=== PATIENT | male | born 1950 | race Caucasian/White ===

== ENCOUNTER 2017-05-09 14:39 | Emergency (ER) | payer OTHER, BC ==
[~2017-05-09] VITALS: Ht 175.3 cm; Wt 80.4 kg
[2017-05-09 14:45] VITALS: TEMP 37; Ht 175.3 cm; Wt 80.4 kg
[2017-05-09] MEDS ORDERED: LIDO/EPINEPHRINE/SOD BICARB 20 ML VIAL INFIL ONE (15:15)
--- NOTE | 2017-05-09 15:40 | EMERGENCY ROOM VISIT NOTE ---
ED Visit Note First contact with patient: 14:50 CHIEF COMPLAINT: Scalp laceration at work 1 hour ago HISTORY OF PRESENT ILLNESS: Patient is a generally healthy 66-year-old white male brought to the emergency department by a coworker for evaluation of a left- sided scalp laceration that he sustained at work about an hour ago. 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 He was no loss of consciousness, he complains of a mild throbbing discomfort at the site of the laceration that he rates a 4/10. He denies any generalized headache. No lightheadedness, dizziness, nausea or vomiting. He denies any neck pain. REVIEW OF SYSTEMS: Review of systems as per HPI. All other systems reviewed were negative. At least 6 systems reviewed. PMH: Electronic medical records are reviewed and summarized as above/below. See Problem List. His tetanus is up-to-date. SOCIAL HISTORY: Patient lives at home with his . Nonsmoker. PHYSICAL EXAM: Vital Signs: Reviewed Nurse's notes. CONSTITUTIONAL: Patient is a pleasant, well-appearing 56-year-old white male who is awake and alert and in no acute distress. HEENT: Normocephalic, 5 cm V-shaped flap laceration on the top of the head on the left. Pupils equal, round, reactive to light and accommodation. EOMs intact without nystagmus. Sclera are anicteric. Tympanic membranes intact, with normal landmarks. External canals are clear. No hemotympanum or Cuellar sign. Oral and nasopharynx are clear. Mucous membranes are moist. NECK: Supple, nontender, no lymphadenopathy. NEUROLOGICAL: Alert and cooperative. Sensory and motor functions grossly intact. Normal gait. EMERGENCY DEPARTMENT COURSE: Patient was seen and assessed as above. Old records were reviewed. The wound was cleaned with saline and Betadine and irrigated with saline. Sterile technique was used and the wound was anesthetized with 1% buffered lidocaine with epinephrine. The flap was reflected, wound base was inspected thoroughly. There was no foreign body. No active bleeding. Wound did not extend into the galea. The wound edges were then approximated with 6 skin caio. Bacitracin ointment was applied as a dressing. Patient tolerated the procedure well. Mechanism of injury is not consistent with skull fracture, acute intracranial bleed or concussion. It was not felt that any advanced neuro imaging was indicated. Patient was comfortable with this. Wound care measures were outlined. Discharged home in good condition. Medication reconciliation: I attest that I have personally reviewed the patient' s current medication list. Blood pressure screening: Patient was found to have a slightly elevated blood pressure due to circumstances. I do not believe that the patient requires hypertension monitoring. Current/Historical Medications Scheduled Atorvastatin (Lipitor), 10 MG PO DAILY Allergies Coded Allergies: No Known Allergies (Unverified , 05/09/17) Vital Signs Date Time Temp Pulse Resp B/P (MAP) Pulse Ox O2 Delivery O2 Flow Rate FiO2 05/09/17 16:00 79 18 145/91 96 Room Air 05/09/17 14:45 37.0 77 18 161/86 94 Room Air Departure Information Impression Primary Impression: Scalp laceration Additional Impression: Work related injury Referrals No Doctor, Assigned (PCP) Patient Instructions My [facility] Additional Instructions Keep wound clean and dry. Do not allow any crusting or dried blood to accumulate on caio. May cleanse the area gently with mild soap/C ampule and rinsed with water. May also use a 1:1 solution of hydrogen peroxide/water on a Q-tip to clean the wound should any crusting or scabbing develop. Use an antibiotic ointment for 3-4 days, then let wound dry. Staple removal in 12-14 days. Return sooner for any signs of infection (increasing redness, swelling, drainage), severe headache, vomiting, passing out, or any other concerns.. Ice and elevate for swelling and pain. Tylenol 1000 mg every 6 hrs for pain. Problem Qualifiers
[2017-05-09] MEDS ORDERED: ATOR10TA82 PO (15:48)
[2017-05-09 16:00] VITALS: BP 145/91; PULSE 79; O2SAT 96
== END 2017-05-09 16:00 | disposition home or self-care (01) ==
LOC: C.EDB 14:39 → C.EDD 16:00
DX: S01.01XA Laceration without foreign body of scalp, initial encounter (principal); W22.8XXA Striking against or struck by other objects, initial encounter; Y92.89 Other specified places as the place of occurrence of the external cause; Y99.0 Civilian activity done for income or pay; Z79.899 Other long term (current) drug therapy

== ENCOUNTER → 2017-05-19 | Outpatient (CLI) | payer BC, OTHER ==
[~2017-05-19] VITALS: Ht 176.5 cm; Wt 79.7 kg
[~2017-05-19] MED LIST: ATOR10TA82 PO
[2017-05-19 12:20] VITALS: BP 136/85; PULSE 91; Ht 176.5 cm; Wt 79.7 kg
== END | disposition home or self-care (01) ==
LOC: C.NEUR 11:54
PROVIDERS: ATTEND Internal Medicine Pulmonary Disease
DX: G47.19 Other hypersomnia (principal); R53.83 Other fatigue; R06.81 Apnea, not elsewhere classified; G47.8 Other sleep disorders; R06.83 Snoring

== ENCOUNTER → 2017-06-02 | Outpatient (CLI) | payer BC, OTHER ==
--- NOTE | 2017-06-05 13:47 | POLYSOMNOGRAPH REPORT ---
CLINICAL DATA: 67-year-old male with a BMI of [address] Conway and myself for fatigue, excessive daytime sleepiness, and snoring. On the evening of 06/02/2017, a home sleep apnea test was performed using a Heyzap type 3 monitor. RECORDING RESULTS: Total recording time was 10 hours. The patient's monitoring time and estimated sleep time was 7.3 hours. RESPIRATORY DATA: There was no evidence of clinically significant sleep apnea seen. The TASHA was 3.1. There was 1 mixed and 4 central apneic episodes. There were 18 hypopneic episodes. The longest respiratory event was 29 seconds. OXIMETRY DATA: No significant hypoxemia was seen. Oxygen ankit was 87%. Mean saturation was 92%. Time below 89% was less than one minute. HEART RATE DATA: Heart rates ranged from 52-69 beats per minute. SNORING DATA: Snoring was recorded throughout the night. IMPRESSION: No evidence of clinically significant sleep apnea/hypopnea or nocturnal hypoxemia to explain this patient's symptoms. RECOMMENDATIONS: The patient should continue to practice good sleep hygiene. GUILLAUME
== END | disposition home or self-care (01) ==
LOC: C.NEUR 12:16
PROVIDERS: ATTEND Internal Medicine Pulmonary Disease
DX: G47.19 Other hypersomnia (principal); R53.83 Other fatigue; R06.83 Snoring; G47.8 Other sleep disorders; R06.81 Apnea, not elsewhere classified

== ENCOUNTER 2017-06-16 16:01 | Inpatient (IN) | payer BC, OTHER ==
[~2017-06-16] VITALS: Ht 175.3 cm; Wt 76.8 kg
[2017-06-16] MEDS ORDERED: NITROGLYCERIN OINT 2% 1GM PACKET EXT ONE (16:15)
--- NOTE | 2017-06-16 16:26 | DIAGNOSTIC IMAGING REPORT ---
CHEST ONE VIEW PORTABLE CLINICAL HISTORY: Chest pain and cough. COMPARISON STUDY: No previous studies for comparison. FINDINGS: Lung volumes are at the lower limits of normal. There is no consolidation to suggest pneumonia is there is no evidence of pulmonary edema. Cardiomediastinal silhouette is normal. Minimal left basilar opacity favors atelectasis. IMPRESSION: No acute cardiopulmonary findings. Electronically signed by: Александр Galan M.D. 06/16/2017 4:24 PM Dictated Date/Time: 06/16/2017 4:24 PM
[2017-06-16 16:46] LABS: BASO % 0.3 %; BASO ABS # 0.04 K/uL (0-0.2); COMPLETE YES; EOS % 3.9 %; HEMATOCRIT 41.2 % (42-52); IG% 0.3 %; LYMPH % 9.7 %; LYMPH ABS # 1.26 K/uL (1.2-3.4); MEAN CELL VOLUME 93.8 fL (80-100); MEAN CORPUSCULAR HEMOGLOBIN 31.7 pg (25-34); MEAN CORPUSCULAR HGB CONC 33.7 g/dl (32-36); MEAN PLATELET VOLUME 9.9 fL (7.4-10.4); MONO % 7.7 %; NEUT % 78.1 %; PLATELET COUNT 206 K/uL (130-400); RED BLOOD COUNT 4.39 M/uL (4.7-6.1); WHITE BLOOD COUNT 12.93 K/uL (4.8-10.8)
[2017-06-16 17:08] LABS: POINT OF CARE TROPONIN I < 0.030 ng/ml (0-0.045)
[2017-06-16 17:10] LABS: ALT/SGPT 33 U/L (12-78); BLOOD UREA NITROGEN 15 mg/dl (7-18); BUN/CREATININE RATIO 16.5 (10-20); CALCIUM 8.4 mg/dl (8.5-10.1); CARBON DIOXIDE 26 mmol/L (21-32); CHLORIDE 104 mmol/L (98-107); CREATININE 0.89 mg/dl (0.60-1.40); GLUCOSE 145 mg/dl (70-99); POTASSIUM 3.6 mmol/L (3.5-5.1); SODIUM 137 mmol/L (136-145)
[2017-06-16 17:15] LABS: ALKALINE PHOSPHATASE 60 U/L (45-117); AST/SGOT 19 U/L (15-37); CKMB/CK RATIO 1.1 (0-3.0)
[2017-06-16] MEDS ORDERED: OPTIRAY 320 IV PRN (17:30)
[2017-06-16] MEDS ORDERED: ACET-1256 PO (17:43)
[2017-06-16] MEDS ORDERED: ASPI81TA28 PO (17:43)
--- NOTE | 2017-06-16 18:10 | DIAGNOSTIC IMAGING REPORT ---
CT ANGIOGRAPHY OF THE CHEST, PULMONARY EMBOLUS PROTOCOL CLINICAL HISTORY: Right-sided chest pain, elevated d-dimer and cough. COMPARISON STUDY: Chest radiograph performed earlier today. TECHNIQUE: Following IV administration of 116 mL of Optiray-320, helical axial images of the chest were obtained utilizing the pulmonary embolus protocol. Maximal intensity projections and sagittal and coronal reformats were viewed on an independent 3D workstation. IV contrast was administered without complication. A dose lowering technique was utilized adhering to the principles of ALARA. CT DOSE: 343.18 mGy.cm FINDINGS: No pulmonary emboli are identified. The size of the heart is normal. There is no pericardial effusion. No enlarged axillary, mediastinal or hilar lymph nodes are present. The central airways are patent. There is no pneumothorax. There are trace bilateral pleural effusions. Bilateral lower lobe ground glass opacities favor atelectasis. There are mild upper lobe predominant subpleural groundglass opacities. Note is made of a 5 mm right upper lobe subpleural ill-defined nodular opacity shown image 178 of 278. No cavitation is present. There is no thoracic aortic dissection. Bony thorax and upper abdomen are unremarkable. IMPRESSION: 1. No pulmonary emboli identified. 2. Trace bilateral pleural effusions. 3. Mild upper lobe and peripheral predominant subpleural groundglass opacities. These are nonspecific and differential considerations include an infectious etiology, respiratory bronchiolitis, eosinophilic pneumonia and inhalational injury. A follow-up chest CT in 3 months to ensure resolution is recommended. 4. Bilateral lower lobe ground glass opacities which favor atelectasis. Electronically signed by: Александр Galan M.D. 06/16/2017 6:09 PM Dictated Date/Time: 06/16/2017 5:52 PM
[2017-06-16] MEDS ORDERED: LEVAQUIN 750MG / 150ML D5W IV STA (18:39)
[2017-06-16] MEDS ORDERED: ONDANSETRON INJ 2 MG/ML 2 ML VIAL IV PRN (20:00)
[2017-06-16] MEDS ORDERED: ACETAMINOPHEN 325 MG TAB PO PRN (20:00)
[2017-06-16] MEDS ORDERED: NITROGLYCERIN 0.4 MG SL PER TAB CHARGE SL PRN (20:00)
[2017-06-16] MEDS ORDERED: ALBUTEROL HFA 8 GM INHALER INH PRN (20:15)
[2017-06-16] MEDS ORDERED: ALBUTEROL 0.083% NEBU SOLN 3 ML VIAL INH PRN (20:15)
[2017-06-16] MEDS ORDERED: LEVAQUIN 750MG / 150ML D5W ONE (20:41)
[2017-06-16 21:09] LABS: INFLUENZA A PCR Neg for Influ A (NEG); INFLUENZA B PCR Neg for Influ B (NEG)
[2017-06-16 21:10] VITALS: BP 123/73; PULSE 87; TEMP 36.5; O2SAT 95; Ht 175.3 cm; Wt 76.8 kg
[2017-06-16 21:50] LABS: PARTIAL THROMBOPLASTIN RATIO 1.2; PROTHROMBIN TIME (PATIENT) 10.4 SECONDS (9.0-12.0)
--- NOTE | 2017-06-16 21:52 | EMERGENCY ROOM VISIT NOTE ---
History Report prepared by Saurav: Staci Peraza Under the Supervision of: Dr. Michael Bacon M.D. First contact with patient: 16:04 Chief Complaint: CHEST PAIN Stated Complaint: CHEST PAIN, COUGH Nursing Triage Summary: Patient has had a cough for about one week, today about 1 hour prior to arrival patient began to have chest pain while getting gallon water jugs. Patient was given 324 asprin and 1 nitro enroute. Patient states pain went from a 9 to a 7 with the nitro. History of Present Illness The patient is a 67 year old male who presents to the Emergency Room with complaints of an episode of chest pain starting two hours ago. The patient states that the pain started when he was moving gallon water jugs. He states that the pain was a 10/10 in severity. He reports that he took Nitroglycerin and it offered relief. He states that it bought it down to a 7/10 in severity. He currently rates his pain as a 3/10 in severity. The patient states that during the episode he became nauseous and was belching a lot. He states that the pain is worse when he takes a deep breath. The patient complains of a cough and having substance production with his cough. The patient notes that his and son have been sick with a cold. He notes a history of a heart murmur. The patient denies a cardiac history, ever having a stress test done, and traveling long distances recently. Pt denies LOC, headache, fevers, chills, diaphoresis, visual changes, neck pain , breathing difficulties, vomiting, abdominal pain, back pain, melena, hematochezia, urinary symptoms, numbness, weakness, lymphadenopathy, rash, or other complaints. Source of History: patient Onset: two hours ago Position: chest Symptom Intensity: 3/10 Timing: other (episode) Modifying Factors (Worsening): breathing Modifying Factors (Relieving): other (Nitroglycerin) Associated Symptoms: + cough, + nausea Note: The patient complains of excessive belching and substance production when coughing. Review of Systems See HPI for pertinent positives and negatives. A total of ten systems were reviewed and were otherwise negative. Past Medical & Surgical Medical Problems: (1) Chest pain (2) No Known Active Medical Problems (3) Pleurisy (4) Pneumonia Family History Patient reports no known family medical history. Social History Smoking Status: Never Smoker Marital Status: Housing Status: lives with family Current/Historical Medications Scheduled Acetaminophen (Tylenol), 1,000 MG PO prn ud Aspirin (Aspirin Ec), 81 MG PO DAILY Atorvastatin (Lipitor), 10 MG PO DAILY Allergies Coded Allergies: No Known Allergies (Unverified , 05/09/17) Physical Exam Vital Signs Date Time Temp Pulse Resp B/P (MAP) Pulse Ox O2 Delivery O2 Flow Rate FiO2 06/16/17 17:55 86 16 101/63 96 Room Air 06/16/17 17:09 85 16 117/75 96 Room Air 06/16/17 16:25 92 06/16/17 16:23 90 16 116/74 95 Room Air 06/16/17 16:17 Room Air 06/16/17 16:17 Room Air 06/16/17 16:03 Room Air 06/16/17 15:59 37.2 103 16 131/84 93 Room Air Physical Exam GENERAL: Awake, alert, well-appearing, in no distress HENT: Normocephalic, atraumatic. Oropharynx unremarkable. EYES: Normal conjunctiva. Sclera non-icteric. NECK: Supple. No nuchal rigidity. FROM. No JVD. RESPIRATORY: Clear to auscultation. CARDIAC: Borderline tachycardic rate, normal rhythm. Extremities warm and well perfused. Pulses equal. ABDOMEN: Soft, non-distended. No tenderness to palpation. No rebound or guarding. No masses. RECTAL: Deferred. MUSCULOSKELETAL: Chest examination reveals no tenderness. The back is symmetrical on inspection without obvious abnormality. There is no CVA tenderness to palpation. No joint edema. LOWER EXTREMITIES: Calves are equal size bilaterally and non-tender. No edema. No discoloration. NEURO: Normal sensorium. No sensory or motor deficits noted. SKIN: No rash or jaundice noted. Medical Decision & Procedures ER Provider Diagnostic Interpretation: Radiology results as stated below per my review and radiologist interpretation: CHEST ONE VIEW PORTABLE CLINICAL HISTORY: Chest pain and cough. COMPARISON STUDY: No previous studies for comparison. FINDINGS: Lung volumes are at the lower limits of normal. There is no consolidation to suggest pneumonia is there is no evidence of pulmonary edema. Cardiomediastinal silhouette is normal. Minimal left basilar opacity favors atelectasis. IMPRESSION: No acute cardiopulmonary findings. Electronically signed by: Александр Galan M.D. 06/16/2017 4:24 PM Dictated Date/Time: 06/16/2017 4:[address] ANGIOGRAPHY OF THE CHEST, PULMONARY EMBOLUS PROTOCOL CLINICAL HISTORY: Right-sided chest pain, elevated d-dimer and cough. COMPARISON STUDY: Chest radiograph performed earlier today. TECHNIQUE: Following IV administration of 116 mL of Optiray-320, helical axial images of the chest were obtained utilizing the pulmonary embolus protocol. Maximal intensity projections and sagittal and coronal reformats were viewed on an independent 3D workstation. IV contrast was administered without complication. A dose lowering technique was utilized adhering to the principles of ALARA. CT DOSE: 343.18 mGy.cm FINDINGS: No pulmonary emboli are identified. The size of the heart is normal. There is no pericardial effusion. No enlarged axillary, mediastinal or hilar lymph nodes are present. The central airways are patent. There is no pneumothorax. There are trace bilateral pleural effusions. Bilateral lower lobe ground glass opacities favor atelectasis. There are mild upper lobe predominant subpleural groundglass opacities. Note is made of a 5 mm right upper lobe subpleural ill-defined nodular opacity shown image 178 of 278. No cavitation is present. There is no thoracic aortic dissection. Bony thorax and upper abdomen are unremarkable. IMPRESSION: 1. No pulmonary emboli identified. 2. Trace bilateral pleural effusions. 3. Mild upper lobe and peripheral predominant subpleural groundglass opacities. These are nonspecific and differential considerations include an infectious etiology, respiratory bronchiolitis, eosinophilic pneumonia and inhalational injury. A follow-up chest CT in 3 months to ensure resolution is recommended. 4. Bilateral lower lobe ground glass opacities which favor atelectasis. Electronically signed by: Александр Galan M.D. 06/16/2017 6:09 PM Dictated Date/Time: 06/16/2017 5:52 PM Laboratory Results 06/16/17 16:25 Red Blood Count 4.39, Mean Corpuscular Volume 93.8, Mean Corpuscular Hemoglobin 31.7, Mean Corpuscular Hemoglobin Concent 33.7, Mean Platelet Volume 9.9, Neutrophils (%) (Auto) 78.1, Lymphocytes (%) (Auto) 9.7, Monocytes (%) (Auto) 7.7, Eosinophils (%) (Auto) 3.9, Basophils (%) (Auto) 0.3, Neutrophils # (Auto) 10.10, Lymphocytes # (Auto) 1.26, Monocytes # (Auto) 0.99, Eosinophils # (Auto) 0.50, Basophils # (Auto) 0.04 06/16/17 16:25 Test 06/16/17 16:25 06/16/17 16:50 06/16/17 19:05 White Blood Count 12.93 K/uL (4.8-10.8) Red Blood Count 4.39 M/uL (4.7-6.1) Hemoglobin 13.9 g/dL (14.0-18.0) Hematocrit 41.2 % (42-52) Mean Corpuscular Volume 93.8 fL (80-100) Mean Corpuscular Hemoglobin 31.7 pg (25-34) Mean Corpuscular Hemoglobin Concent 33.7 g/dl (32-36) Platelet Count 206 K/uL (130-400) Mean Platelet Volume 9.9 fL (7.4-10.4) Neutrophils (%) (Auto) 78.1 % Lymphocytes (%) (Auto) 9.7 % Monocytes (%) (Auto) 7.7 % Eosinophils (%) (Auto) 3.9 % Basophils (%) (Auto) 0.3 % Neutrophils # (Auto) 10.10 K/uL (1.4-6.5) Lymphocytes # (Auto) 1.26 K/uL (1.2-3.4) Monocytes # (Auto) 0.99 K/uL (0.11-0.59) Eosinophils # (Auto) 0.50 K/uL (0-0.5) Basophils # (Auto) 0.04 K/uL (0-0.2) RDW Standard Deviation 44.7 fL (36.4-46.3) RDW Coefficient of Variation 13.0 % (11.5-14.5) Immature Granulocyte % (Auto) 0.3 % Immature Granulocyte # (Auto) 0.04 K/uL (0.00-0.02) Anion Gap 7.0 mmol/L (3-11) Est Creatinine Clear Calc Drug Dose 81.7 ml/min Estimated GFR () 103.3 Estimated GFR (Non- 89.1 BUN/Creatinine Ratio 16.5 (10-20) Calcium Level 8.4 mg/dl (8.5-10.1) Total Bilirubin 0.5 mg/dl (0.2-1) Direct Bilirubin < 0.1 mg/dl (0-0.2) Aspartate Amino Transf (AST/SGOT) 19 U/L (15-37) Alanine Aminotransferase (ALT/SGPT) 33 U/L (12-78) Alkaline Phosphatase 60 U/L (45-117) Total Creatine Kinase 91 U/L (39-308) Creatine Kinase MB 1.0 ng/ml (0.5-3.6) Creatine Kinase MB Ratio 1.1 (0-3.0) Total Protein 7.3 gm/dl (6.4-8.2) Albumin 3.2 gm/dl (3.4-5.0) Lipase 185 U/L (73-393) Bedside D-Dimer > 450 ng/mlFEU (0-450) Bedside Troponin I < 0.030 ng/ml (0-0.045) Influenza Type A (RT-PCR) Neg for Influ A (NEG) Influenza Type A Antigen See Comment (NEG) Influenza Type B Antigen See Comment (NEG) Influenza Type B (RT-PCR) Neg for Influ B (NEG) Laboratory results reviewed by me Medications Administered Medications (Trade) Dose Ordered Sig/Edi Route Start Time Stop Time Status Last Admin Dose Admin Nitroglycerin (Nitroglycerin 2% Oint) 1 inch NOW ONCE EXT 06/16/17 16:15 06/16/17 16:16 DC 06/16/17 16:24 1 INCH Levofloxacin (Levaquin / D5W) 750 mg NOW STAT IV 06/16/17 18:39 06/16/17 18:42 DC 06/16/17 20:45 750 MG ECG Indication: chest pain Rate (beats per minute): 98 Rhythm: normal sinus Findings: RBBB, T-wave inversion (Anterolateral) Comparison ECG Date: November 02, 2012 and repeat ECG Change: T wave inversions anterolaterally are new. Repeat ECG: Normal sinus at a rate of 85 bpm. RBBB. Anterolateral T-wave inversions are improved. ED Course 1608: The patient was evaluated in room C7. A complete history and physical exam was performed. 1615: Ordered Nitroglycerin 1 inch EXT. 1616: I reviewed the pre-hospital ECG and it is similar to the ECG done here on arrival. 1700: I reevaluated the patient and the pain is gone unless he takes a deep breath. 1719: I reevaluated the patient and he is doing well. 1834: I reevaluated the patient and he is doing well. 1838: Ordered Levofloxacin 750 mg IV. 1851: Discussed the patient's case with Leah aSha PA-C Hospitalist. The patient will be evaluated for further treatment and disposition. Medical Decision Triage Nursing notes reviewed. The patient's presentation and history were concerning for chest pain. Etiologies such as cardiac ischemia, aortic dissection, pulmonary embolism, pneumonia, pneumothorax, musculoskeletal, infections, gastrointestinal, as well as others were entertained. The patient was evaluated. His EKG was somewhat concerning. He had significant pain relief with nitroglycerin. The patient was given nitro paste. He received aspirin prehospital. On reassessment his pain was resolved. Repeat ECG did show some improvement in his T waves. He does have a right bundle branch block. That is old. Chest imaging was unremarkable from an x- ray standpoint. His blood work showed a slight leukocytosis. Influenza testing was confirmed negative by PCR. His chemistries were unremarkable and troponin was negative. CT PE study was done due to the scenario and this did not show any evidence of pulmonary embolism however he did have some pneumonitis and nodules. The patient had cultures done. He was given IV Levaquin. The hospital service was consulted due to the chest pain, relief with nitroglycerin, and ECG changes. He was evaluated in the Emergency Room for further management. Medication Reconcilliation Current Medication List: was personally reviewed by me Blood Pressure Screening Patient's blood pressure: Normal blood pressure Will be further monitored by hospitalist. Consults Time Called: 1849 Consulting Physician: Leah Saha PA-C Hospitalist Returned Call: 1851 Discussed the patient's case with Leah Saha PA-C Hospitalist. The patient will be evaluated for further treatment and disposition. Impression Primary Impression: Right-sided chest pain Additional Impressions: SOB (shortness of breath) Acute electrocardiogram changes Pneumonitis Scribe Attestation The scribe's documentation has been prepared under my direction and personally reviewed by me in its entirety. I confirm that the note above accurately reflects all work, treatment, procedures, and medical decision making performed by me. Departure Information Dispostion Being Evaluated By Hospitalist Referrals Fox Conway M.D. (PCP) Patient Instructions My [facility] Problem Qualifiers
--- NOTE | 2017-06-16 22:04 | HISTORY & PHYSICAL EXAMINATION ---
DATE OF ADMISSION: 06/16/2017 PRIMARY CARE PHYSICIAN: Dr. Conway CHIEF COMPLAINT: Right-sided chest pain with shortness of breath since around 2:30 p.m. HISTORY OF PRESENT COMPLAINT: He is a 67-year-old male with significant past medical history including hyperlipidemia, history of benign neoplasm of colon, high blood pressure, thyroid nodule and also chronic seasonal allergic rhinitis due to Pollen. Apparently has been complaining of right-sided upper and lateral chest wall pain since around 2:30 p.m. He was outside, he was fetching some water and then he was getting the shortness of breath that was worse with the breathing that started at 2:30 p.m. today. There is no radiation of the pain, did not have any associated increasing shortness of breath with it, did not have any sweating with it and he did not have any of this pain before. Apparently, he has had URI symptoms like flu with cough and shortness of breath for the last week. In fact, all the family members did have that problem too. He denies to having any fever, but he feels feverish. He does not have any abdominal discomfort, any pain, nausea or vomiting and/or problem with urine and/or bowel habit, and he does not have any numbness or tingling involving the upper extremities. In the Emergency Room, he was hemodynamically stable and apparent blood test came back positive for white count of 12.93 and a CAT scan of the chest did not show any pulmonary embolism, but it did show trace bilateral pleural effusion and mild upper lobe and peripheral predominant papular ground-glass opacities suggestive of developing pneumonia. From that point, he was admitted to telemetry unit for continuation of care. His EKG did show right BBB with associated ST-T wave changes but his troponin was negative. PAST MEDICAL HISTORY: Significant for benign neoplasm of colon, elevated blood pressure that is situational, hyperlipidemia, thyroid nodule and chronic seasonal rhinitis. PAST SURGICAL HISTORY: Tonsillectomy as a child and vasectomy. No other significant surgical history. FAMILY HISTORY: Maternal grandmother had diabetes. Mother has diabetes and glaucoma and father had lung disorder and at the age of 77. SOCIAL HISTORY: He is . He has 3 children. He never smoked. He drinks alcohol occasionally. He has been reasonably ambulant. ALLERGIES: NKDA. MEDICATIONS: As an outpatient, he has been on Tylenol 1 gram as directed, aspirin 81 mg daily, and Lipitor 10 mg daily. He also takes Viagra 25 mg as directed and albuterol ProAir 2 puffs every 4 hours as needed and Zantac 150 mg daily. REVIEW OF SYSTEMS: Other systemic reviews unremarkable except those mentioned in history of present complaint. PHYSICAL EXAMINATION: GENERAL: On examination in the Emergency Room, he was anxious, minimal shortness of breath at rest, but no definite pain. VITAL SIGNS: Temperature 36.4, pulse 90 per minute regular, blood pressure 116/74, saturation 95% on room air. HEENT: Unremarkable. NECK: Supple. No JVD, no bruit. CHEST: Decreased breath sounds right side with bilateral crackles in the mid lung zone, mostly in the left. HEART: S1, S2 regular, no murmur. ABDOMEN: Soft, benign, nontender, no organomegaly. Bowel sounds present. EXTREMITIES: Trace edema bilaterally. MUSCULOSKELETAL SYSTEM: Did not show any acute arthritis involving any joint. CENTRAL NERVOUS SYSTEM: He is alert, awake, oriented x3 and no focal, sensory and/or motor deficit appreciated. LABORATORY DATA: Noted today white count was 12.93, H&H 13.9/41.2, platelet was 206. Sodium 137, potassium 3.6, chloride 104, carbon dioxide 26, BUN 15, creatinine 0.89, random glucose 145, calcium 8.4, total bili 0.5, direct 0.1. LFTs normal. Albumin 3.2. Troponin was less than 0.030. D-dimer was more than 450. Influenza A and B are pending. Chest x-ray, no acute cardiopulmonary findings. CTA is reported as no pulmonary emboli, trace bilateral pleural effusion, mild upper lobe and peripheral predominant, pleural ground-glass opacities. These are nonspecific and differential considerations include an infectious etiology, respiratory bronchiolitis. pneumonia and inhalational injury. He will need follow up CT . Bilateral lower lobe ground-glass opacities which favor atelectasis. EKG did show sinus rhythm, right bundle branch block with a rate of 98 per minute with associated ST-T wave changes. IMPRESSION AND PLAN: 1. Right-sided chest pain, most likely pleuritic with pneumonia. The patient will be admitted to telemetry unit. For the atypical chest pain, he will have serial cardiac enzymes and echocardiogram. Blood culture was taken. His flu test is pending right now. He was started with Levaquin and continue with that. We will give nebulized bronchodilator. We will get pulmonary evaluation tomorrow and further management will depend on pulmonary evaluation. 2. Atypical chest pain, right sided. He has a right bundle branch block associated ST-T wave changes. His troponin has been negative. We will do serial cardiac enzymes and echocardiogram. 3. History of high blood pressure seems to be normotensive at this time, will not start any medications. 4. Hyperlipidemia. Continue with Lipitor. 5. History of thyroid nodule. We will check TSH. 6. Gastrointestinal prophylaxis. He has been on ranitidine and will continue with that. 7. Deep venous thrombosis prophylaxis with Lovenox. CODE STATUS: Discussed with the patient and the . He will be a full code. In my clinical assessment, the beneficiary meets criteria for CMS for 2 midnight stay in the hospital. GUILLAUME
[2017-06-16] MEDS: ENOXAPARIN 40 MG/0.4 ML SYR SC SCH ×2 (22:31→22:58)
[2017-06-16] MEDS: NSS + 20MEQ KCL 1000ML 1,000 ML IV SCH (22:31)
[2017-06-17] VITALS (8 sets, daily range): BP systolic 130–142; BP diastolic 72–87; PULSE 66–92; TEMP 36.5–37.8; O2SAT 93–99
[2017-06-17 02:15] LABS: CKMB/CK RATIO 1.3 (0-3.0)
[2017-06-17] MEDS ORDERED: LACTOBACILLUS ACIDOPHILUS (FLORANEX) TAB PO SCH (07:30)
[2017-06-17] MEDS: ATORVASTATIN 10 MG TAB PO SCH (07:56)
[2017-06-17 08:30] LABS: CKMB/CK RATIO 1.1 (0-3.0)
[2017-06-17] MEDS ORDERED: ASPIRIN 81 MG ECTAB PO SCH (09:00)
[2017-06-17] MEDS ORDERED: RANITIDINE HCL 150 MG TAB PO SCH (09:00)
--- NOTE | 2017-06-17 09:55 | PULMONARY CONSULTATION ---
DATE OF CONSULTATION: 06/17/2017 TIME: 09:10 a.m. REPORT OF CONSULTATION: The patient was seen in room 221, bed 1. He is a 67-year-old male who has a history of having a significant cough for 7-10 days preceding admission. The cough was productive of mucus, which at times was brown in color. He felt warm at times, but did not check his temperature. Thus, he is not sure if he had a fever. He did not have chills and he did not have sweats. He had no nausea, vomiting or diarrhea. The cough was so severe; however, that he was worried about bothering others in his household. Yesterday, the patient had gone to fill up some gallons of water. As he was doing this, he developed some pain in the right upper anterior chest. It seemed to be worse with taking a deep breath. He subsequently went home with a water, but his carried most of the water inside for him. These would be gallon container she had. The patient subsequently came to the Emergency Room. He was short of breath in association with the chest pain. The patient states that he has an inhaler that he uses at times. This would be typically when he has a cold. He had used the inhaler about 3 times in the prior 24 hours before coming in. Usually, he does not use it much. The inhaler apparently is ProAir. His energy level has been okay. He had not had any other significant complaints. The patient states he has never had any pulmonary problems in the past other than this mild wheezing associated with cold. He has never smoked. PAST SURGICAL HISTORY: 1. Tonsillectomy. 2. Vasectomy. 3. Placement of tubes in his ears. PAST MEDICAL HISTORY: 1. Hyperlipidemia. 2. Hypertension. 3. Benign colon mass. 4. Thyroid nodule. 5. Allergic rhinitis. 6. Questionable reflux. SOCIAL HISTORY: Tobacco never. ETOH -- occasional. ALLERGIES: No known allergies. FAMILY HISTORY: Mother . He thinks she had heart disease. Father . He thinks he had lung disease. Maternal grandmother had diabetes. REVIEW OF SYSTEMS: Negative except for the above-mentioned complaints. Ten systems reviewed. MEDICATIONS AT HOME: Tylenol, aspirin, atorvastatin, and albuterol inhaler. PHYSICAL EXAMINATION: GENERAL: The patient is a 67-year-old male who was cooperative, alert and oriented. He did not appear in any distress. HEENT: Pupils were reactive to light. Nares were clear. Mouth exam showed no erythema or exudate. NECK: Palpation of the neck reveals no lymph nodes or masses. VITAL SIGNS: The cardiac rate was 92 per minute. The rhythm was regular. Blood pressure 134/82. CHEST: Normal expansion. Respiratory rate was 20 breaths per minute. Auscultation revealed wheezing on expiration bilaterally. This would be at end expiration. No rales were heard. The patient stated that he was still having a little pain taking a deep breath. Oxygen saturation on room air was 93%. ABDOMEN: Soft. Bowel sounds were normal. There was no tenderness to palpation, masses, or organomegaly. EXTREMITIES: Showed no cyanosis, clubbing or edema. LABORATORY DATA: White blood cell count was elevated at 12.93. Hemoglobin 13.9. Platelets 206,000. The differential count did show 78.1% neutrophils, 9.7 lymphs, 7.7 monocytes and 3.9 eosinophils. Coags were normal. D-dimer was greater than 450. Electrolytes show sodium 137, potassium 3.6, chloride 104, and bicarb 26. BUN was 15 with a creatinine 0.89. Random sugar was 145. Liver functions were normal. Troponin was negative x3. Mycoplasma titers pending. Urine for legionella antigen is pending. Flu test was negative. The chest x-ray was clear. CAT scan of the chest showed no pulmonary emboli. There were trace effusions. There are mild upper lobe peripheral subpleural ground-glass opacities. There was a pulmonary nodule, measuring 5 mm in the right upper lobe. There were some ground-glass opacities at the bases, greater on the left than the right that would appear to be atelectatic in nature. IMPRESSIONS: 1. Patchy lung infiltrate, suggestive for community-acquired pneumonia. 2. Chest pain. 3. Lung nodule, right upper lobe. COMMENTS AND RECOMMENDATIONS: The patient is clinically looking fairly good. He is on levofloxacin, which I agree with. He is on neb treatments, but only p.r.n. and he appears not to be getting them. He is wheezing on exam. I would suggest we give the neb treatments on a regular basis for a day or two to try and clear him out sooner. The radiologist has recommended a followup CAT scan in 3 months in light of the nodule and the nonspecific parenchymal changes. The patient does have a fever this morning. I would continue to watch him at least until tomorrow in light of his complaints. We will attempt to obtain a sputum, although he has already had antibiotic therapy initiated. Thank you for asking me to assist in his care.
[2017-06-17] MEDS: NSS + 20MEQ KCL 1000ML 1,000 ML IV SCH (10:39)
[2017-06-17] MEDS ORDERED: RANITIDINE HCL 150 MG TAB PO PRN (11:30)
[2017-06-17] MEDS ORDERED: ENOXAPARIN 40 MG/0.4 ML SYR SQ SCH (11:30)
[2017-06-17] MEDS ORDERED: ZNTT/150 PO (11:39)
[2017-06-17] MEDS ORDERED: ALBU18002 INH (11:39)
[2017-06-17] MEDS ORDERED: SILD1TAB11 PO (11:39)
--- NOTE | 2017-06-17 11:48 | Progress Note ---
Medicine Progress Note Date & Time of Visit: Jun 17, 2017 at 11:25. Subjective 67 yoM nonsmoker with no h/o chronic lung disease presents with acute R-sided chest pain that is pleuritic in nature. Workup reveals developing pneumonia and he was started on abx and IVF yesterday with great improvement today. He is not hypoxic or short of breath but still has a decreased intensity pleuritic pain that is present. Serial cardiac enzymes were negative overnight. He has no h/o cardiac disease or recent symptoms of chest pain or dyspnea in the last 6 months despite a very active lifestyle. Doing well today and reports feeling much improved with respect to his pain and coughing. He is not short of breath today, tolerating PO. Denies fevers and chills. Reports persistent pleuritic pain but only with taking deep breaths. This also triggers him to cough. Objective Last 8 Hrs Date Time Temp Pulse Resp B/P (MAP) Pulse Ox O2 Delivery O2 Flow Rate FiO2 06/17/17 08:00 Room Air 06/17/17 07:41 37.8 92 16 134/82 (99) 93 Room Air 06/17/17 04:00 Room Air 06/17/17 03:40 37.0 86 18 136/86 (103) 93 Room Air Physical Exam: GEN: WNWD, in no acute distress, alert and appropriate, no respiratory distress or conversational dyspnea. HEENT: NC/AT,pupil are equal and round bilaterally, normal sclerae, MMM CARDIO: reg rate, S1/2 heard without m/g/r LUNGS: mild wheezing in different lung olvera, lung exam compromised because patient continues to cough. Otherwise, clear without rhonchi or rales. ABD: soft, non-tender, non-distended, no rebound or guarding, +BS EXTREMITY: RP and DP palpable 2+ bilat, no LE swelling or edema, extremities are warm and well-perfused NEURO: CN 2-12 grossly intact MUSC: moves all extremities equally, no gross focal deficits. SKIN: warm and dry Laboratory Results: 06/16/17 16:25 Red Blood Count 4.39, Mean Corpuscular Volume 93.8, Mean Corpuscular Hemoglobin 31.7, Mean Corpuscular Hemoglobin Concent 33.7, Mean Platelet Volume 9.9, Neutrophils (%) (Auto) 78.1, Lymphocytes (%) (Auto) 9.7, Monocytes (%) (Auto) 7.7, Eosinophils (%) (Auto) 3.9, Basophils (%) (Auto) 0.3, Neutrophils # (Auto) 10.10, Lymphocytes # (Auto) 1.26, Monocytes # (Auto) 0.99, Eosinophils # (Auto) 0.50, Basophils # (Auto) 0.04 06/16/17 16:25 Test 06/16/17 16:25 06/16/17 16:50 06/16/17 19:05 06/16/17 21:19 White Blood Count 12.93 K/uL (4.8-10.8) Red Blood Count 4.39 M/uL (4.7-6.1) Hemoglobin 13.9 g/dL (14.0-18.0) Hematocrit 41.2 % (42-52) Mean Corpuscular Volume 93.8 fL (80-100) Mean Corpuscular Hemoglobin 31.7 pg (25-34) Mean Corpuscular Hemoglobin Concent 33.7 g/dl (32-36) Platelet Count 206 K/uL (130-400) Mean Platelet Volume 9.9 fL (7.4-10.4) Neutrophils (%) (Auto) 78.1 % Lymphocytes (%) (Auto) 9.7 % Monocytes (%) (Auto) 7.7 % Eosinophils (%) (Auto) 3.9 % Basophils (%) (Auto) 0.3 % Neutrophils # (Auto) 10.10 K/uL (1.4-6.5) Lymphocytes # (Auto) 1.26 K/uL (1.2-3.4) Monocytes # (Auto) 0.99 K/uL (0.11-0.59) Eosinophils # (Auto) 0.50 K/uL (0-0.5) Basophils # (Auto) 0.04 K/uL (0-0.2) RDW Standard Deviation 44.7 fL (36.4-46.3) RDW Coefficient of Variation 13.0 % (11.5-14.5) Immature Granulocyte % (Auto) 0.3 % Immature Granulocyte # (Auto) 0.04 K/uL (0.00-0.02) Anion Gap 7.0 mmol/L (3-11) Est Creatinine Clear Calc Drug Dose 81.7 ml/min Estimated GFR () 103.3 Estimated GFR (Non- 89.1 BUN/Creatinine Ratio 16.5 (10-20) Calcium Level 8.4 mg/dl (8.5-10.1) Total Bilirubin 0.5 mg/dl (0.2-1) Direct Bilirubin < 0.1 mg/dl (0-0.2) Aspartate Amino Transf (AST/SGOT) 19 U/L (15-37) Alanine Aminotransferase (ALT/SGPT) 33 U/L (12-78) Alkaline Phosphatase 60 U/L (45-117) Total Protein 7.3 gm/dl (6.4-8.2) Albumin 3.2 gm/dl (3.4-5.0) Lipase 185 U/L (73-393) Bedside D-Dimer > 450 ng/mlFEU (0-450) Bedside Troponin I < 0.030 ng/ml (0-0.045) Influenza Type A (RT-PCR) Neg for Influ A (NEG) Influenza Type A Antigen See Comment (NEG) Influenza Type B Antigen See Comment (NEG) Influenza Type B (RT-PCR) Neg for Influ B (NEG) Prothrombin Time 10.4 SECONDS (9.0-12.0) Prothromb Time International Ratio 1.0 (0.9-1.1) Activated Partial Thromboplast Time 29.9 SECONDS (21.0-31.0) Partial Thromboplastin Ratio 1.2 Test 06/16/17 21:27 06/16/17 23:36 06/17/17 07:52 Hepatitis C Antibody Screen NEG (NEG) Total Creatine Kinase 70 U/L (39-308) Creatine Kinase MB 0.8 ng/ml (0.5-3.6) Creatine Kinase MB Ratio 1.1 (0-3.0) Troponin I < 0.015 ng/ml (0-0.045) Date/Time Source Procedure Growth Status 06/16/17 19:38 Blood Blood Culture Pending Received Last 24 Hours Test 06/16/17 16:25 06/16/17 16:50 06/16/17 19:05 06/16/17 21:19 White Blood Count 12.93 K/uL Red Blood Count 4.39 M/uL Hemoglobin 13.9 g/dL Hematocrit 41.2 % Mean Corpuscular Volume 93.8 fL Mean Corpuscular Hemoglobin 31.7 pg Mean Corpuscular Hemoglobin Concent 33.7 g/dl Platelet Count 206 K/uL Mean Platelet Volume 9.9 fL Neutrophils (%) (Auto) 78.1 % Lymphocytes (%) (Auto) 9.7 % Monocytes (%) (Auto) 7.7 % Eosinophils (%) (Auto) 3.9 % Basophils (%) (Auto) 0.3 % Neutrophils # (Auto) 10.10 K/uL Lymphocytes # (Auto) 1.26 K/uL Monocytes # (Auto) 0.99 K/uL Eosinophils # (Auto) 0.50 K/uL Basophils # (Auto) 0.04 K/uL RDW Standard Deviation 44.7 fL RDW Coefficient of Variation 13.0 % Immature Granulocyte % (Auto) 0.3 % Immature Granulocyte # (Auto) 0.04 K/uL Sodium Level 137 mmol/L Potassium Level 3.6 mmol/L Chloride Level 104 mmol/L Carbon Dioxide Level 26 mmol/L Anion Gap 7.0 mmol/L Blood Urea Nitrogen 15 mg/dl Creatinine 0.89 mg/dl Est Creatinine Clear Calc Drug Dose 81.7 ml/min Estimated GFR () 103.3 Estimated GFR (Non- 89.1 BUN/Creatinine Ratio 16.5 Random Glucose 145 mg/dl Calcium Level 8.4 mg/dl Total Bilirubin 0.5 mg/dl Direct Bilirubin < 0.1 mg/dl Aspartate Amino Transf (AST/SGOT) 19 U/L Alanine Aminotransferase (ALT/SGPT) 33 U/L Alkaline Phosphatase 60 U/L Total Creatine Kinase 91 U/L Creatine Kinase MB 1.0 ng/ml Creatine Kinase MB Ratio 1.1 Total Protein 7.3 gm/dl Albumin 3.2 gm/dl Lipase 185 U/L Bedside D-Dimer > 450 ng/mlFEU Bedside Troponin I < 0.030 ng/ml Influenza Type A (RT-PCR) Neg for Influ A Influenza Type A Antigen See Comment Influenza Type B Antigen See Comment Influenza Type B (RT-PCR) Neg for Influ B Prothrombin Time 10.4 SECONDS Prothromb Time International Ratio 1.0 Activated Partial Thromboplast Time 29.9 SECONDS Partial Thromboplastin Ratio 1.2 Test 06/16/17 21:27 06/16/17 23:36 06/17/17 01:31 06/17/17 07:52 Hepatitis C Antibody Screen NEG Total Creatine Kinase 70 U/L 70 U/L Creatine Kinase MB 0.9 ng/ml 0.8 ng/ml Creatine Kinase MB Ratio 1.3 1.1 Troponin I < 0.015 ng/ml < 0.015 ng/ml Date/Time Source Procedure Growth Status 06/16/17 19:38 Blood Blood Culture Pending Received 06/16/17 19:33 Blood Blood Culture Pending Received Assessment & Plan 67 yoM nonsmoker with no h/o chronic lung disease presents with acute R-sided chest pain that is pleuritic in nature. Workup reveals developing pneumonia and he was started on abx and IVF yesterday with great improvement today. He is not hypoxic or short of breath but still has a decreased intensity pleuritic pain that is present. Serial cardiac enzymes were negative overnight. He has no h/o cardiac disease or recent symptoms of chest pain or dyspnea in the last 6 months despite a very active lifestyle. 1. Pleuritic R chest pain likely 2/2 pneumonia-cont Levaquin, sputum and blood cultures pending. Cardiac enzymes negative overnight, less likely cardiac chest pain with this and pleuritic nature. No hypoxia or SOB is present. Scheduled nebs. Apprec pulm consult. Tylenol PRN pain. Of note, patient is not on ASA at home, will DC this and the Lactobaccillus. Apprec pulm recs. 2. Hyperlipidemia-cont Lipitor DVT proph-Lovenox Full Code Dispo-likely to home in am. Kita Gonzalez DO [facility] Hospitalist Consultants: [facility]. Current Inpatient Medications: Current Inpatient Medications Medications (Trade) Dose Ordered Sig/Edi Route Start Time Stop Time Status Last Admin Dose Admin Ioversol (Optiray 320) 100 ml UD PRN IV 06/16/17 17:30 06/20/17 17:29 Enoxaparin Sodium (Lovenox Inj) 40 mg Q24H SC 06/16/17 23:00 07/16/17 22:59 06/16/17 22:58 40 MG Potassium Chloride/Sodium Chloride 1,000 ml @ 75 mls/hr [id number] IV 06/16/17 21:30 07/16/17 21:29 06/17/17 10:39 75 MLS/HR Acetaminophen (Tylenol Tab) 650 mg Q4H PRN PO 06/16/17 20:00 07/16/17 19:59 Ondansetron HCl (Zofran Inj) 4 mg Q6H PRN IV 06/16/17 20:00 07/16/17 19:59 Nitroglycerin (Nitrostat Tab) 0.4 mg UD PRN SL 06/16/17 20:00 07/16/17 19:59 Aspirin (Ecotrin Tab) 81 mg DAILY PO 06/17/17 09:00 07/17/17 08:59 06/17/17 07:56 81 MG Atorvastatin Calcium (Lipitor Tab) 10 mg DAILY PO 06/17/17 09:00 07/17/17 08:59 06/17/17 07:56 10 MG Levofloxacin 750 mg/Prmx 150 ml @ 100 mls/hr Q24H IV 06/17/17 20:00 06/23/17 19:59 Ranitidine HCl (zANTac TAB) 150 mg QAM PO 06/17/17 09:00 07/17/17 08:59 06/17/17 07:56 150 MG Albuterol (Ventolin Hfa Inhaler) 2 puffs Q6H PRN INH 06/16/17 20:15 07/16/17 20:14 Lactobacillus Acidophilus (Floranex Tab) 4 tab TIDM PO 06/17/17 07:30 07/17/17 07:59 06/17/17 07:57 4 TAB Albuterol Sulfate (Ventolin 0.083% 2.5MG/3ML Neb) 2.5 mg Q6R INH 06/17/17 10:45 07/16/17 20:14
[2017-06-17] MEDS: ALBUTEROL 0.083% NEBU SOLN 3 ML VIAL INH SCH ×3 (12:49→19:08)
--- NOTE | 2017-06-17 13:50 | ECHOCARDIOGRAM REPORT ---
*NOTICE TO RECEIVING [employer] This information is strictly Confidential and protected under [place] law. [place] law prohibits you from making any further disclosure of this information unless further disclosure is expressly permitted by the written consent of the person to whom it pertains or is authorized by law. A general authorization for the release of medical or other information is not sufficient for this purpose. Hospital accepts no responsibility if the information is made available to any other person, INCLUDING THE PATIENT. Interpretation Summary * Name: ZAHIDA PAPPAS Study Date: 06/17/2017 06:40 AM BP: 136/86 mmHg * Patient Location: C.2T\S\E221\S\1 HR: 68 * : 1950 (M/d/yyyy) Gender: Male Height: 69 in * Age: 67 yrs Ethnicity: CA Weight: 180 lb * Ordering Physician: Roma Monet * Referring Physician: Self, Referred * Performed By: Anh Wise RDCS * * Reason For Study: Chest Pain * BSA: 2.0 m2 * -- Conclusions -- * No suggested pulmolnary hypertension by doppler study, however the RV appears to be dilated with flattening of the ventricular septum that may indicate pulmonary hypertension. Clinical correlation is indicated. Procedure Details * A complete two-dimensional transthoracic echocardiogram was performed (2D, M-mode, Doppler and color flow Doppler). Left Ventricle * The left ventricle is normal in size. * The basal septum is thickened and angulated consistent with sigmoid septum. * Ejection Fraction = 60-65%. * Flattened septum is consistent with RV pressure overload. Right Ventricle * The right ventricle is moderately dilated. * The right ventricular systolic function is moderately reduced. Tricuspid Valve * The tricuspid valve is not well visualized, but is grossly normal. * There is mild tricuspid regurgitation. Aortic Valve * The aortic valve is tricuspid. The leaflet thickness if normal. There is no aortic stenosis, and no significant insufficiency. Pulmonic Valve * The pulmonic valve is not well visualized. * There is no significant pulmonary regurgitation. Great Vessels * The aortic root and proximal ascending aorta are normal sized. Pericardium/Pleural * There is no pericardial effusion. Left Ventricular Diastolic Function * Grade I diastolic dysfunction, (abnormal relaxation pattern). MMode 2D Measurements and Calculations IVSd 1.3 cm IVSs 1.4 cm LVIDd 3.4 cm LVIDs 2.0 cm LVPWd 10 cm LVPWs 1.2 cm IVS/LVPW 1.3 FS 42.3 % EDV(Teich) 48.5 ml ESV(Teich) 12.4 ml EF(Teich) 74.4 % EDV(cubed) 40.4 ml ESV(cubed) 7.8 ml EF(cubed) 80.7 % % IVS thick 12.1 % % LVPW thick 22.1 % LV mass(C)d 121.8 grams LV mass(C)dI 61.7 grams/m\S\2 LV mass(C)s 77.0 grams LV mass(C)sI 39.0 grams/m\S\2 SV(Teich) 36.0 ml SI(Teich) 18.2 ml/m\S\2 SV(cubed) 32.6 ml SI(cubed) 16.5 ml/m\S\2 Ao root diam 3.4 cm Ao root area 9.3 cm\S\2 ACS 1.5 cm LA dimension 3.4 cm LA/Ao 0.98 LVAd ap4 31.8 cm\S\2 LVLd ap4 7.8 cm EDV(MOD-sp4) 107.4 ml EDV(sp4-el) 109.9 ml LVAs ap4 16.2 cm\S\2 LVLs ap4 6.5 cm ESV(MOD-sp4) 38.7 ml ESV(sp4-el) 34.3 ml EF(MOD-sp4) 64.0 % EF(sp4-el) 68.8 % LVAd ap2 26.2 cm\S\2 LVLd ap2 7.3 cm EDV(MOD-sp2) 79.2 ml EDV(sp2-el) 80.2 ml LVAs ap2 13.9 cm\S\2 LVLs ap2 5.7 cm ESV(MOD-sp2) 29.0 ml ESV(sp2-el) 28.5 ml EF(MOD-sp2) 63.3 % EF(sp2-el) 64.5 % LVLd %diff -7.66 % EDV(MOD-bp) 96.3 ml LVLs %diff -13.16 % ESV(MOD-bp) 35.3 ml EF(MOD-bp) 63.3 % SV(MOD-sp4) 68.7 ml SI(MOD-sp4) 34.8 ml/m\S\2 SV(MOD-sp2) 50.2 ml SI(MOD-sp2) 25.4 ml/m\S\2 SV(MOD-bp) 61.0 ml SI(MOD-bp) 30.9 ml/m\S\2 SV(sp4-el) 75.6 ml SI(sp4-el) 38.3 ml/m\S\2 SV(sp2-el) 51.7 ml SI(sp2-el) 26.2 ml/m\S\2 Doppler Measurements and Calculations MV E max esther 86.3 cm/sec MV A max esther 119.2 cm/sec MV E/A 0.72 MV dec time 0.23 sec Ao V2 max 134.9 cm/sec Ao max PG 7.3 mmHg Ao max PG (full) 2.4 mmHg LV V1 max PG 4.8 mmHg LV V1 max 110.0 cm/sec PA V2 max 114.3 cm/sec PA max PG 5.2 mmHg PI max esther 163.1 cm/sec PI max PG 10.6 mmHg PI dec slope 262.4 cm/sec\S\2 PI P1/2t 182.0 msec TR max esther 222.8 cm/sec
[2017-06-17 14:37] LABS: CKMB/CK RATIO 0.9 (0-3.0)
[2017-06-17] MEDS ORDERED: LEVOFLOXACIN / D5W 750 MG in PREMIXED IN D5W 150 ML IV SCH (20:00)
[2017-06-18] VITALS (7 sets, daily range): BP systolic 112–136; BP diastolic 61–83; PULSE 73–92; TEMP 36.9–37.3; O2SAT 94–96
[2017-06-18] MEDS: ENOXAPARIN 40 MG/0.4 ML SYR SC SCH (00:16)
[2017-06-18] MEDS: ALBUTEROL 0.083% NEBU SOLN 3 ML VIAL INH SCH ×2 (01:43→07:02)
[2017-06-18 07:03] LABS: CHOLESTEROL/HDL RATIO 3.6
[2017-06-18] MEDS: ATORVASTATIN 10 MG TAB PO SCH (08:41)
--- NOTE | 2017-06-18 09:35 | Pulmonology Progress Note ---
Pulmonary Progress Note Date of Service Jun 18, 2017. Attending Dr. Britt Subjective Patient is feeling much improved this morning. He continues to have some mild cough on and off. He is producing minimal sputum this morning that is jacob in color. Repeat lab work reviewed. Troponin negative. CKMB negative. Sputum culture pending. Blood cultures negative. Patient is currently receiving Levaquin and nebulizer treatment. He is tolerating these well. CTA of chest showed no PE. Mild upper lobe and peripheral lower lobe groundglass opacities were noted. These images were viewed by me. Objective VS reviewed: Afebrile HR 92 RR 18 BP 135/82 SaO2 95% on room air General: Patient is awake, alert, cooperative, and in no acute distress. Well developed. Well-nourished. Head: Normocephalic, Atraumatic. ENT: PERRLA, No discharge, EOMI, Sclera normal Neck: Normal ROM. Trachea midline. No stridor Respiratory: Very mild wheezing at right base and upper lobes b/l. No respiratory distress. No accessory muscle use. Cardiovascular: Regular rate and rhythm. No murmur appreciate. Normal S1/S2. Abdomen: Nontender to palpation. Normal bowel sounds hear throughout. No guarding. Abdomen is soft and nontender Extremities: No edema, cyanosis. Normal ROM Neuro: Alert, Oriented x 3. CN II-XII grossly intact. Sensation and motor function grossly intact. Psych: Mood and affect are normal. Assessment & Plan Pneumonia Chest pain Shortness of breath Patient is feeling much improved today. He is tolerating Levaquin well. He continues to have some mild SOB and mild right sided chest pain with deep breath. Otherwise, he has not had any continued fever, sweats, chills, or severe coughing. Recommend completing a 7 day course of Levaquin as an outpatient. Would send patient home with Albuterol inhaler PRN SOB as well due to continued mild wheezing. He should also have a repeat CT scan completed in 3 months as an outpatient. Otherwise, once medically cleared, patient is OK to go home from Pulmonary standpoint. Data Medications: Current Inpatient Medications Medications (Trade) Dose Ordered Sig/Edi Route Start Time Stop Time Status Last Admin Dose Admin Ioversol (Optiray 320) 100 ml UD PRN IV 06/16/17 17:30 06/20/17 17:29 Enoxaparin Sodium (Lovenox Inj) 40 mg Q24H SC 06/16/17 23:00 07/16/17 22:59 06/18/17 00:16 40 MG Acetaminophen (Tylenol Tab) 650 mg Q4H PRN PO 06/16/17 20:00 07/16/17 19:59 06/18/17 04:08 650 MG Ondansetron HCl (Zofran Inj) 4 mg Q6H PRN IV 06/16/17 20:00 07/16/17 19:59 Nitroglycerin (Nitrostat Tab) 0.4 mg UD PRN SL 06/16/17 20:00 07/16/17 19:59 Atorvastatin Calcium (Lipitor Tab) 10 mg DAILY PO 06/17/17 09:00 07/17/17 08:59 06/18/17 08:41 10 MG Levofloxacin 750 mg/Prmx 150 ml @ 100 mls/hr Q24H IV 06/17/17 20:00 06/23/17 19:59 06/17/17 20:08 100 MLS/HR Albuterol (Ventolin Hfa Inhaler) 2 puffs Q6H PRN INH 06/16/17 20:15 07/16/17 20:14 Albuterol Sulfate (Ventolin 0.083% 2.5MG/3ML Neb) 2.5 mg Q6R INH 06/17/17 10:45 07/16/17 20:14 06/18/17 07:02 2.5 MG Ranitidine HCl (zANTac TAB) 150 mg BID PRN PO 06/17/17 11:30 07/17/17 11:29 Vital Signs: Date Time Temp Pulse Resp B/P (MAP) Pulse Ox O2 Delivery O2 Flow Rate FiO2 06/18/17 08:00 37.0 92 18 135/82 (99) 95 Room Air 06/18/17 07:02 73 14 95 Room Air 06/18/17 04:00 Room Air 06/18/17 03:56 37.1 76 17 112/61 (78) 94 Room Air 06/18/17 01:44 80 14 96 Room Air 06/18/17 00:29 37.3 76 18 126/74 (91) 96 Room Air 06/18/17 00:00 Room Air 06/17/17 20:00 Room Air 06/17/17 19:15 36.8 74 18 142/73 (96) 99 Room Air 06/17/17 19:09 81 16 96 Room Air 06/17/17 16:00 Room Air 06/17/17 15:38 36.5 85 18 141/72 (95) 97 Room Air 06/17/17 14:34 66 16 94 Room Air 06/17/17 12:00 Room Air 06/17/17 11:28 36.7 91 16 139/87 (104) 97 Laboratory Results: Last 24 Hours Test 06/17/17 13:55 06/17/17 20:08 06/18/17 06:08 Total Creatine Kinase 77 U/L 70 U/L Creatine Kinase MB 0.7 ng/ml 0.7 ng/ml Creatine Kinase MB Ratio 0.9 1.0 Troponin I < 0.015 ng/ml < 0.015 ng/ml Triglycerides Level 90 mg/dl Cholesterol Level 152 mg/dl HDL Cholesterol 42 mg/dl LDL Cholesterol, Calculated 92 mg/dl VLDL Cholesterol, Calculated 18 mg/dl Cholesterol/HDL Ratio 3.6
[2017-06-18 10:08] LABS: LEGIONELLA ANTIGEN NOT DETECTED (NOT DETECTED)
[2017-06-18] MEDS ORDERED: LEVO-18 PO (11:12)
[2017-06-18] MEDS ORDERED: ALBUTEROL HFA 8 GM INHALER INH SCH (12:00)
[2017-06-18] MEDS ORDERED: GUAISYP5 PO (13:41)
[2017-06-18] MEDS ORDERED: ALBU18002 INH (13:41)
--- NOTE | 2017-06-18 13:52 | Discharge Instructions ---
Discharge Instructions Date of Service Jun 18, 2017. Admission Reason for Admission: Chest Pain, Pleurisy, Pneumonia Discharge Discharge Diagnosis / Problem: Community-acquired pneumonia Discharge Goals Goal(s): Prevent Disease Progression Activity Recommendations Activity Limitations: per Instructions/Follow-up section . Instructions / Follow-Up Instructions / Follow-Up Please take all medications as instructed. You have been given an antibiotic, cough syrup for symptom control and a refill on your inhaler. This was sent electronically to the pharmacy we have on file and should be available after discharge. You have some abnormal findings on CT scan that need to be followed up in 3 months. It is also recommended you get a repeat CXR in 4-6 weeks to ensure resolution of the pneumonia. As your pneumonia was atypical, Dr. Conway may opt to do the CT scan instead. These studies will be ordered through his office. You have a follow-up appointment set up with Dr. Conway on 06/25/17 @ 12:45pm for follow-up from this hospitalization. Please bring all paperwork from discharge with you to this appointment. It was a pleasure taking care of you! Call if you have any questions or problems. You can reach a [facility] hospitalist on duty at [facility] 24 hours a day by calling [phone]. Take care of yourself. Kita Gonzalez DO [facility] Hospitalist Current Hospital Diet Patient's current hospital diet: Regular Diet Discharge Diet Recommended Diet: Regular Diet Procedures Procedures Performed: TTE Pending Studies Studies pending at discharge: yes List of pending studies: Mycoplasma Laboratory Results Lipid Panel Test 06/18/17 06:08 Range/Units Triglycerides Level 90 0-150 mg/dl Cholesterol Level 152 0-200 mg/dl HDL Cholesterol 42 mg/dl Cholesterol/HDL Ratio 3.6 LDL Cholesterol, Calculated 92 mg/dl Medical Emergencies . Who to Call and When: Medical Emergencies: If at any time you feel your situation is an emergency, please call 911 immediately. . Non-Emergent Contact Non-Emergency issues call your: Primary Care Provider . . "Provider Documentation" section prepared by Kita Gonzalez. . VTE Core Measure Inpt VTE Proph given/why not?: Enoxaparin (Lovenox)[facility] Drug Monitoring Program Search Results: patient reviewed within database, no issues identified
--- NOTE | 2017-06-18 13:56 | Discharge Summary ---
Discharge Summary Date of Service Jun 18, 2017. Discharge Summary Admission Date: Jun 16, 2017 at 19:54 Discharge Date: Jun 18, 2017 Discharge Disposition: Home Principal Diagnosis: Pleuritic R chest pain-improved, thought 2/2 atypical pneumonia Community-acquired pneumonia Hyperlipidemia Procedures: TTE Vaccinations: None. Consultations: Pulm-Cable. Pending Studies/Follow-Up: see instructions below. Medication Reconciliation New Medications: Guaifenesin-Codeine (Robitussin-Ac Syrup) 1 Syp Syp 10 ML PO Q6H PRN for Cough for 8 Days, #240 ML caution: may cause drowsiness Levofloxacin (Levaquin) 750 Mg Tab 750 MG PO DAILY for 5 Days, #5 TAB Continued Medications: Acetaminophen (Tylenol) 500 Mg Tab 1000 MG PO prn ud, TAB Albuterol Sulfate (Proair Respiclick) 108 Mcg/Act Aer 2 PUFFS INH QID PRN for SOB/Wheezing for 30 Days, #1 INHALER 3 Refills (This prescription has been renewed) Atorvastatin (Lipitor) 10 Mg Tab 10 MG PO DAILY, TAB Ranitidine (Zantac) 150 Mg Tab 150 MG PO BID PRN for heartburn, TAB Sildenafil Citrate (Viagra) 25 Mg Tab 25-50 MG PO PRN PRN for intercourse, TAB up to 50mg PO daily Admission Information HPI (per Admitting provider): HISTORY OF PRESENT COMPLAINT: He is a 67-year-old male with significant past medical history including hyperlipidemia, history of benign neoplasm of colon, high blood pressure, thyroid nodule and also chronic seasonal allergic rhinitis due to Pollen. Apparently has been complaining of right-sided upper and lateral chest wall pain since around 2:30 p.m. He was outside, he was fetching some water and then he was getting the shortness of breath that was worse with the breathing that started at 2:30 p.m. today. There is no radiation of the pain, did not have any associated increasing shortness of breath with it, did not have any sweating with it and he did not have any of this pain before. Apparently, he has had URI symptoms like flu with cough and shortness of breath for the last week. In fact, all the family members did have that problem too. He denies to having any fever, but he feels feverish. He does not have any abdominal discomfort, any pain, nausea or vomiting and/or problem with urine and/or bowel habit, and he does not have any numbness or tingling involving the upper extremities. In the Emergency Room, he was hemodynamically stable and apparent blood test came back positive for white count of 12.93 and a CAT scan of the chest did not show any pulmonary embolism, but it did show trace bilateral pleural effusion and mild upper lobe and peripheral predominant papular ground-glass opacities suggestive of developing pneumonia. From that point, he was admitted to telemetry unit for continuation of care. His EKG did show right BBB with associated ST-T wave changes but his troponin was negative. Physical Exam (per Admitting): PHYSICAL EXAMINATION: GENERAL: On examination in the Emergency Room, he was anxious, minimal shortness of breath at rest, but no definite pain. VITAL SIGNS: Temperature 36.4, pulse 90 per minute regular, blood pressure 116/74, saturation 95% on room air. HEENT: Unremarkable. NECK: Supple. No JVD, no bruit. CHEST: Decreased breath sounds right side with bilateral crackles in the mid lung zone, mostly in the left. HEART: S1, S2 regular, no murmur. ABDOMEN: Soft, benign, nontender, no organomegaly. Bowel sounds present. EXTREMITIES: Trace edema bilaterally. MUSCULOSKELETAL SYSTEM: Did not show any acute arthritis involving any joint. CENTRAL NERVOUS SYSTEM: He is alert, awake, oriented x3 and no focal, sensory and/or motor deficit appreciated. Hospital Course 67 yoM nonsmoker with no h/o chronic lung disease presents with acute R-sided chest pain that is pleuritic in nature. Workup reveals developing pneumonia and he was started on abx and IVF with improvement overnight. He is not hypoxic or short of breath but still had a decreased intensity pleuritic pain that was present the next day. Serial cardiac enzymes were negative overnight. He has no h/o cardiac disease or recent symptoms of chest pain or dyspnea in the last 6 months despite a very active lifestyle. His pain was thought 2/2 to is pneumonia. He was continued on Levaquin and bronchodilators. Pulmonary was consulted as his CT findings were somewhat atypical. Specifically, it revealed mild upper lobe and peripheral predominant subpleural groundglass opacities; nonspecific and differential considerations include an infectious etiology, respiratory bronchiolitis, eosinophilic pneumonia and inhalational injury. A follow-up chest CT in 3 months was recommended to ensure resolution is recommended. 1. Pleuritic R chest pain likely 2/2 pneumonia-cont Levaquin, sputum and blood cultures pending. Cardiac enzymes negative overnight, less likely cardiac chest pain with this and pleuritic nature. No hypoxia or SOB is present. Scheduled nebs. Apprec pulm consult. Tylenol PRN pain. Of note, patient is not on ASA at home, will DC this and the Lactobaccillus. Apprec pulm recs. 2. Hyperlipidemia-cont Lipitor On day of discharge he was afebrile and hemodynamically stable and reliably not requiring oxygen supplementation. He was mentating and ambulating at baseline and was tolerating PO. Physical exam was unremarkable with clear lungs to auscultation. He was discharged in stable condition with close PCP follow-up. Total time spent on discharge = 60 minutes This includes examination of the patient, discharge planning, medication reconciliation, and communication with other providers. [place] [address] Discharge Medical Patient Name: Az Lo Unit Number: [id number] Date of : 1950 Patient Status: Admitted Inpatient Attending Doctor: Kita Gonzalez DO DI: Medical v4 Discharge Instructions Date of Service Jun 18, 2017. Admission Reason for Admission: Chest Pain, Pleurisy, Pneumonia Discharge Discharge Diagnosis / Problem: Community-acquired pneumonia Discharge Goals Goal(s): Prevent Disease Progression Activity Recommendations Activity Limitations: per Instructions/Follow-up section . Instructions / Follow-Up Instructions / Follow-Up Please take all medications as instructed. You have been given an antibiotic, cough syrup for symptom control and a refill on your inhaler. This was sent electronically to the pharmacy we have on file and should be available after discharge. You have some abnormal findings on CT scan that need to be followed up in 3 months. It is also recommended you get a repeat CXR in 4-6 weeks to ensure resolution of the pneumonia. As your pneumonia was atypical, Dr. Conway may opt to do the CT scan instead. These studies will be ordered through his office. You have a follow-up appointment set up with Dr. Conway on 06/25/17 @ 12:45pm for follow-up from this hospitalization. Please bring all paperwork from discharge with you to this appointment. It was a pleasure taking care of you! Call if you have any questions or problems. You can reach a [facility] hospitalist on duty at [facility] 24 hours a day by calling [phone]. Take care of yourself. DO [facility] [address] Hospitalist Current Hospital Diet Patient's current hospital diet: Regular Diet Discharge Diet Recommended Diet: Regular Diet Procedures Procedures Performed: TTE Pending Studies Studies pending at discharge: yes List of pending studies: Mycoplasma Laboratory Results Lipid Panel Test 06/18/17 06:08 Range/Units Triglycerides Level 90 0-150 mg/dl Cholesterol Level 152 0-200 mg/dl HDL Cholesterol 42 mg/dl Cholesterol/HDL Ratio 3.6 LDL Cholesterol, Calculated 92 mg/dl Medical Emergencies . Who to Call and When: Medical Emergencies: If at any time you feel your situation is an emergency, please call 911 immediately. . Non-Emergent Contact Non-Emergency issues call your: Primary Care Provider . . "Provider Documentation" section prepared by Kita Gonzalez. . VTE Core Measure Inpt VTE Proph given/why not?: Enoxaparin (Lovenox)[facility] Drug Monitoring Program Search Results: patient reviewed within database, no issues identified Additional Copies To Fox Conway M.D.
== END 2017-06-18 15:22 | disposition home or self-care (01) | DRG 195 ==
LOC: EDBD 16:01 → C.EDC 16:02 → C.2T 19:54 → ENRESERV 20:03
PROVIDERS: ADMIT Internal Medicine; ATTEND Hospitalist
DX: J18.9 Pneumonia, unspecified organism (principal); R07.81 Pleurodynia; R06.02 Shortness of breath; R91.1 Solitary pulmonary nodule; E78.5 Hyperlipidemia, unspecified; E04.1 Nontoxic single thyroid nodule; Z79.82 Long term (current) use of aspirin; Z79.899 Other long term (current) drug therapy

== ENCOUNTER 2017-06-23 23:41 | Emergency (ER) | payer BC, OTHER ==
[~2017-06-23] VITALS: Ht 175.3 cm; Wt 76.4 kg
[~2017-06-23 23:41] MED LIST changes: +ACET-1256 PO; +ALBU18002 INH; +GUAISYP5 PO; +LEVO-18 PO; +RANI150T85 PO; +SILD1TAB11 PO
[2017-06-23 23:46] VITALS: TEMP 37.8; Ht 175.3 cm; Wt 76.4 kg
[2017-06-24] MEDS ORDERED: ALBUT/IPRATROP 3MG/0.5MG NEB 3 ML VIAL INH STA (00:03)
--- NOTE | 2017-06-24 00:07 | EMERGENCY ROOM VISIT NOTE ---
History Report prepared by Saurav: Nikos Kelly Under the Supervision of: Dr. Raúl Blakely M.D. First contact with patient: 23:51 Chief Complaint: FLU LIKE SX Stated Complaint: FLU History of Present Illness The patient is a 67 year old male who presents to the Emergency Room with complaints of a persistent illness that started over a week ago. He states that he was hospitalized here last week for pneumonia and chest pain, and he is not getting any better. The patient says that he took his last dose of Levaquin today. He notes that his chest pain is mostly better, but is still having a productive cough, with fevers and body aches. He denies any loss of consciousness. He says that he has been taking Tylenol for his symptoms. He notes that he has been keeping up with his fluids. The patient denies any new abdominal pain. He is a non-smoker. The patient has been using his inhaler at home periodically with good result. Source of History: patient Onset: Over a week ago Position: other (global - illness) Quality: other (was hospitalized last week for pneumonia and chest pain) Timing: other (persistent) Associated Symptoms: + fevers, + cough (productive), No LOC, No abdominal pain (new) Note: Associated symptoms: Body aches. Review of Systems See HPI for pertinent positives & negatives. A total of 10 systems reviewed and were otherwise negative. Past Medical & Surgical Medical Problems: (1) Chest pain (2) No Known Active Medical Problems (3) Pleurisy (4) Pneumonia Family History Patient reports no known family medical history. Social History Smoking Status: Never Smoker Smokeless Tobacco Use: No Marital Status: Housing Status: lives with family Current/Historical Medications Scheduled Acetaminophen (Tylenol), 1,000 MG PO prn ud Atorvastatin (Lipitor), 10 MG PO DAILY Oseltamivir (Tamiflu), 75 MG PO BID Scheduled PRN Albuterol Sulfate (Proair Respiclick), 2 PUFFS INH QID PRN for SOB/Wheezing Guaifenesin/Codeine (Robitussin-Ac Syrup), 10 ML PO Q6 PRN for Cough Ranitidine (Zantac), 150 MG PO BID PRN for heartburn Sildenafil Citrate (Viagra), 25-50 MG PO PRN PRN for intercourse Allergies Coded Allergies: No Known Allergies (Unverified , 1/3/18) Physical Exam Vital Signs Date Time Temp Pulse Resp B/P (MAP) Pulse Ox O2 Delivery O2 Flow Rate FiO2 06/24/17 01:20 83 27 90 06/24/17 01:05 87 18 92 06/24/17 01:00 110/67 06/24/17 00:50 86 23 90 06/24/17 00:35 88 24 90 06/24/17 00:30 125/75 06/24/17 00:26 81 18 97 06/24/17 00:11 74 17 97 Room Air 06/24/17 00:10 84 06/24/17 00:03 138/82 06/23/17 23:46 37.8 93 20 127/82 93 Room Air Physical Exam GENERAL: Patient is uncomfortable appearing and in mild distress. HEENT: No acute trauma, normocephalic atraumatic, mucous membranes moist, no nasal congestion, no scleral icterus. NECK: No stridor, no adenopathy, no meningismus, trachea is midline. LUNGS: Diffuse wheezing in all lung olvera and a productive junky cough. HEART: Regular rate and rhythm. No murmurs, rubs, gallops appreciated. ABDOMEN: Soft, nontender, bowel sounds positive, no masses appreciated, no peritonitis. BACK: No midline tenderness, no CVA tenderness EXTREMITIES: Normal motion all extremities, no cyanosis, no edema. NEUROLOGIC: Alert and oriented, no acute motor or sensory deficits, no focal weakness, cranial nerves grossly intact. SKIN: No rash, no jaundice, no diaphoresis. Medical Decision & Procedures ER Provider Diagnostic Interpretation: X ray results are stated below per my interpretation: Chest: 1 view: No infiltrate, no effusion, normal cardiac border. Chest x-ray is similar in appearance to previous chest x-ray a few days ago. Laboratory Results 06/24/17 00:15 Red Blood Count 4.37, Mean Corpuscular Volume 91.1, Mean Corpuscular Hemoglobin 32.3, Mean Corpuscular Hemoglobin Concent 35.4, Mean Platelet Volume 9.7, Neutrophils (%) (Auto) 82.4, Lymphocytes (%) (Auto) 7.9, Monocytes (%) (Auto) 8.0, Eosinophils (%) (Auto) 1.0, Basophils (%) (Auto) 0.1, Neutrophils # (Auto) 10.99, Lymphocytes # (Auto) 1.06, Monocytes # (Auto) 1.07, Eosinophils # (Auto) 0.14, Basophils # (Auto) 0.02 06/24/17 00:15 Test 06/24/17 00:00 06/24/17 00:15 Influenza Type A Antigen POS for Influ A (NEG) Influenza Type B Antigen Neg for Influ B (NEG) White Blood Count 13.36 K/uL (4.8-10.8) Red Blood Count 4.37 M/uL (4.7-6.1) Hemoglobin 14.1 g/dL (14.0-18.0) Hematocrit 39.8 % (42-52) Mean Corpuscular Volume 91.1 fL (80-100) Mean Corpuscular Hemoglobin 32.3 pg (25-34) Mean Corpuscular Hemoglobin Concent 35.4 g/dl (32-36) Platelet Count 200 K/uL (130-400) Mean Platelet Volume 9.7 fL (7.4-10.4) Neutrophils (%) (Auto) 82.4 % Lymphocytes (%) (Auto) 7.9 % Monocytes (%) (Auto) 8.0 % Eosinophils (%) (Auto) 1.0 % Basophils (%) (Auto) 0.1 % Neutrophils # (Auto) 10.99 K/uL (1.4-6.5) Lymphocytes # (Auto) 1.06 K/uL (1.2-3.4) Monocytes # (Auto) 1.07 K/uL (0.11-0.59) Eosinophils # (Auto) 0.14 K/uL (0-0.5) Basophils # (Auto) 0.02 K/uL (0-0.2) RDW Standard Deviation 43.4 fL (36.4-46.3) RDW Coefficient of Variation 13.0 % (11.5-14.5) Immature Granulocyte % (Auto) 0.6 % Immature Granulocyte # (Auto) 0.08 K/uL (0.00-0.02) Anion Gap 7.0 mmol/L (3-11) Est Creatinine Clear Calc Drug Dose 73.4 ml/min Estimated GFR () 91.6 Estimated GFR (Non- 79.0 BUN/Creatinine Ratio 18.7 (10-20) Calcium Level 8.2 mg/dl (8.5-10.1) Troponin I < 0.015 ng/ml (0-0.045) Laboratory results as reviewed by me. Medications Administered Medications (Trade) Dose Ordered Sig/Edi Route Start Time Stop Time Status Last Admin Dose Admin Albuterol/ Ipratropium (Duoneb) 3 ml NOW STAT INH 06/24/17 00:03 06/24/17 00:04 DC 06/24/17 00:08 3 ML Acetaminophen (Tylenol Tab) 1,000 mg NOW STAT PO 06/24/17 00:14 06/24/17 00:15 DC 06/24/17 00:29 1,000 MG Oseltamivir Phosphate (Tamiflu Cap) 75 mg NOW STAT PO 06/24/17 01:06 06/24/17 01:07 DC 06/24/17 01:16 75 MG ED Course 2351: The patient was evaluated in room B12B. A complete history and physical exam was performed. 0017: I reevaluated the patient and he says that he did not have flu shot this season. 0052: I reevaluated and updated the patient. 0105: I reevaluated the patient and had a long chat with the patient regarding monitoring in the hospital versus going home, and the patient would like to go home. Family at bedside will drive the patient home. The patient will be discharged. Medical Decision Differential: Infectious, Reactive Airway Disease, Pneumonia, Pneumothorax, COPD , CHF, ACS, Pulmonary Embolism, MSK, GI, Dissection, amongst other etiologies entertained. 67 yr old male with recent admission for pneumonia who just finished course of Levaquin and started developing flu like illness last 48 hours. CXR unchanged without evidence lobar infection at this time. Labs stable with mild WBC elevation similar to a few days ago. No evidence cardiac effects. Flu is positive and given timing I feel tamiflu reasonable as he is borderline low O2 sats in lower 90s. Not dyspneic not ill appearing. Comfortable with continuing treatment/monitoring at home. Advised PCP follow up. Medication Reconcilliation Current Medication List: was personally reviewed by me Blood Pressure Screening Patient's blood pressure: Normal blood pressure Impression Primary Impression: Influenza A Scribe Attestation The scribe's documentation has been prepared under my direction and personally reviewed by me in its entirety. I confirm that the note above accurately reflects all work, treatment, procedures, and medical decision making performed by me. Departure Information Dispostion Home / Self-Care Prescriptions Oseltamivir (Tamiflu) 75 Mg Cap 75 MG PO BID, #10 CAP Prov: Raúl Blakely M.D. 06/24/17 Referrals Fox Conway M.D. (PCP) Patient Instructions ED Flu, My [facility] Additional Instructions It is important you follow up with your primary provider in the next 24-48 hours for repeat evaluation. If at any time you feel your are worsening or have other emergent concerns, return or call 911.
[2017-06-24] MEDS ORDERED: ACETAMINOPHEN 500 MG TAB PO STA (00:14)
[2017-06-24] MEDS ORDERED: ALBU18002 INH (00:17)
[2017-06-24] MEDS ORDERED: GUAISYP4 PO (00:18)
[2017-06-24 00:30] LABS: BASO % 0.1 %; BASO ABS # 0.02 K/uL (0-0.2); EOS ABS # 0.14 K/uL (0-0.5); HEMATOCRIT 39.8 % (42-52); HEMOGLOBIN 14.1 g/dL (14.0-18.0); IG# 0.08 K/uL (0.00-0.02); LYMPH % 7.9 %; LYMPH ABS # 1.06 K/uL (1.2-3.4); MEAN CELL VOLUME 91.1 fL (80-100); MEAN CORPUSCULAR HEMOGLOBIN 32.3 pg (25-34); MEAN CORPUSCULAR HGB CONC 35.4 g/dl (32-36); MEAN PLATELET VOLUME 9.7 fL (7.4-10.4); MONO ABS # 1.07 K/uL (0.11-0.59); NEUT % 82.4 %; NEUT ABS # 10.99 K/uL (1.4-6.5); PLATELET COUNT 200 K/uL (130-400); RED CELL DISTRIBUTION WIDTH SD 43.4 fL (36.4-46.3); WHITE BLOOD COUNT 13.36 K/uL (4.8-10.8)
[2017-06-24 00:40] LABS: INFLUENZA B ANTIGEN Neg for Influ B (NEG)
[2017-06-24 00:47] LABS: BLOOD UREA NITROGEN 19 mg/dl (7-18); CALCIUM 8.2 mg/dl (8.5-10.1); CARBON DIOXIDE 26 mmol/L (21-32); CREATININE 0.99 mg/dl (0.60-1.40); GLUCOSE 123 mg/dl (70-99); POTASSIUM 3.6 mmol/L (3.5-5.1); SODIUM 131 mmol/L (136-145)
[2017-06-24 01:00] VITALS: BP 110/67
[2017-06-24] MEDS ORDERED: OSELTAMIVIR PHOSPHATE 75 MG CAP PO STA (01:06)
[2017-06-24] MEDS ORDERED: OSEL75CA12 PO (01:09)
[2017-06-24 01:20] VITALS: PULSE 83; O2SAT 90
--- NOTE | 2017-06-24 06:51 | DIAGNOSTIC IMAGING REPORT ---
CHEST ONE VIEW PORTABLE CLINICAL HISTORY: cough, fever, post pneumonia dyspnea COMPARISON STUDY: 06/16/2017 FINDINGS: The bones soft tissues and hemidiaphragms are normal. The cardiomediastinal silhouette is normal. The lungs are clear. The pulmonary vasculature is normal. IMPRESSION: Negative chest. The above report was generated using voice recognition software. It may contain grammatical, syntax or spelling errors. Electronically signed by: Jed Canas M.D. 06/24/2017 6:49 AM Dictated Date/Time: 06/24/2017 6:49 AM
== END 2017-06-24 01:25 | disposition home or self-care (01) ==
LOC: C.EDB 23:43
DX: J11.1 Influenza due to unidentified influenza virus with other respiratory manifestations (principal)

== ENCOUNTER 2023-07-16 16:30 | Inpatient (IN) ==
--- NOTE | 2023-07-16 17:20 | ED Triage Note ---
Date of Service July 16, 2023 Provider in Triage Author: Suyapa Mccall History of Present Illness This patient was briefly evaluated while in triage. An abbreviated physical exam was performed. This patient is a 66-year-old Male who presents to the ED for evaluation of low oxygen levels. He has had diarrhea, fever, and flu symptoms which started about 5 days ago. His states they have been monitoring his oxygen levels and they were dipping into the mid to high 80s today. Physical Exam VITALS: Vitals are noted on the nurse's note and reviewed by myself. GENERAL: This is a 66-year-old male, in no acute distress, sitting upright in a wheelchair in triage. HEART: Regular rate and rhythm without murmurs gallops or rubs. LUNGS: Clear to auscultation bilaterally without wheezes, rales or rhonchi. NEURO: Patient was alert and oriented to person place and time. Initial orders for labs and / or imaging were placed and patient was placed in the waiting area until a bed is available. Please see further documentation for the full ED course. MDM / Impression Impression Impression: Hypoxia, Pneumonia, Dementia Impression: Pneumonia Qualifiers: Pneumonia type: due to unspecified organism Laterality: unspecified laterality
[2023-07-16 19:09] LABS: Influenza A virus by PCR Negative (Neg); Influenza B virus by PCR Negative (Neg); RSV by PCR Negative (Neg); SARS CoV2 RNA(COVID-19) Ceph NEGATIVE (Negative)
[2023-07-16 19:24] LABS: Alanine Aminotransferase 21 U/L (7-52); Albumin Level 4.4 gm/dl (3.4-5.0); Alkaline Phosphatase 77 U/L (34-104); BUN Creatinine Ratio 11.1 (10-20); Bilirubin,Total 0.7 mg/dl (0.2-1.0); Blood Urea Nitrogen 9 mg/dl (6-23); Calcium 9.5 mg/dl (8.6-10.3); Carbon Dioxide 27 mmol/L (21-32); Chloride 100 mmol/L (98-107); Est GFR (African American) 108.1 ml/min; Est GFR (Non-African American) 93.3 ml/min; Globulin 4.5 gm/dl (2.5-4.0); Glucose 107 mg/dl (70-99(Fasting)); Total Protein 8.9 gm/dl (6.0-8.3); Troponin I High Sensitivity 6.2 pg/ml (0-20)
[2023-07-16 19:29] LABS: Basophils % (auto) 0.7 %; Eosinophils # (auto) 0.56 K/uL (0.00-0.50); Eosinophils % (auto) 3.8 %; Hemoglobin 15.9 g/dl (14.0-18.0); Immature Granulocytes # (auto) 0.05 K/uL (0.01-0.20); Immature Granulocytes % (auto) 0.3 %; Lymphocytes # (auto) 2.08 K/uL (1.20-3.40); Lymphocytes % (auto) 14.3 %; Mean Corpuscular Hemoglobin 30.6 pg (25.0-34.0); Mean Corpuscular Hgb Conc 33.1 g/dL (32.0-36.0); Mean Corpuscular Volume 92.5 fL (80.0-100.0); Mean Platelet Volume 10.6 fL (9.4-12.4); Monocytes # (auto) 1.04 K/uL (0.11-0.59); Monocytes % (auto) 7.1 %; Neutrophils # (auto) 10.75 K/uL (1.40-6.50); Neutrophils % (auto) 73.8 %; Platelet Count 246 K/uL (130-400); RDW Coefficient of Variation 12.8 % (11.5-14.5); RDW Standard Deviation 43.7 fL (36.4-46.3); Red Blood Count 5.19 M/uL (4.70-6.10); White Blood Count 14.58 K/ul (4.8-10.8)
[2023-07-16 20:13] LABS: iSTAT Creatinine 0.8 mg/dl (0.6-1.3); iSTAT Ionized Calcium 1.12 mmol/l (1.12-1.32); iSTAT Potassium 3.8 mmol/L (3.3-5.0)
[2023-07-16 20:42] LABS: Potassium 3.7 mmol/L (3.5-5.1)
--- NOTE | 2023-07-16 20:52 | XRay Report ---
XR chest 1V portable CLINICAL HISTORY: flu like symptoms, low oxygen levels TECHNIQUE: Single frontal radiograph of the chest was obtained. Comparison: None available at the time of this dictation. FINDINGS: No lines and tubes are seen. The cardiomediastinal silhouette is normal. The lungs are clear. No evid ence of pleural effusion or pneumothorax. IMPRESSION: No acute abnormalities and in particular no radiographic evidence of pneumonia. ACT 112: Negative or not required by law. Electronically signed by: Sriram Singh M.D. 07/16/2023 8:50 PM
[2023-07-16 20:54] LABS: Adenovirus PCR Not Detected (NotDetected); Bordetella parapertussis PCR Not Detected (NotDetected); Bordetella pertussis PCR Not Detected (NotDetected); Chlamydia pneumoniae PCR Not Detected (NotDetected); Coronavirus 229E PCR Not Detected (NotDetected); Coronavirus CoV-2 (COVID19)PCR Not Detected (NotDetected); Coronavirus HKU1 PCR Not Detected (NotDetected); Coronavirus NL63 PCR Not Detected (NotDetected); Coronavirus OC43PCR Not Detected (NotDetected); Human Metapneumovirus PCR Not Detected (NotDetected); Influenza A PCR Not Detected (NotDetected); Influenza B PCR Not Detected (NotDetected); Mycoplasma pneumoniae PCR Not Detected (NotDetected); Parainfluenza Virus 1 PCR Not Detected (NotDetected); Parainfluenza Virus 2 PCR Not Detected (NotDetected); Parainfluenza Virus 3 PCR Not Detected (NotDetected); Parainfluenza Virus 4 PCR Not Detected (NotDetected); Respiratory Syncytial VirusPCR Not Detected (NotDetected); Rhinovirus/Enterovirus PCR Not Detected (NotDetected)
[2023-07-16] MEDS ORDERED: cefTRIAXone SODIUM 2,000 MG/50 ML BAG IV STA (21:29)
[2023-07-16] MEDS ORDERED: LACTATED RINGER'S 1,000 ML IV ONE (21:29)
[2023-07-16] MEDS ORDERED: AZITHROMYCIN 250 MG TAB PO ONE (21:29)
--- NOTE | 2023-07-16 21:55 | Emergency Department Note ---
History of Present Illness General Chief Complaint: Illness Stated Complaint: ILLNESS, DIARRHEA Time Seen by Provider: 07/16/23 19:12 Source: patient and family ( who is patient in the adjacent hospital bed and son at bedside) History of Present Illness Provider Complaint: + fever, + cough and + nasal congestion Onset (ago): 1 week(s) Duration: + progressively worsening Able to tolerate fluids by mouth: Yes Context: + sick contacts ( is in the adjacent hospital bed with the exact same symptoms) Associated symptoms: + fever, + chills, + myalgias, + shortness of breath, + nausea, + vomiting and + diarrhea HPI Narrative: and son report that the patient oxygen saturation decreases with ambulation. No hemoptysis no melena or hematochezia. Home Medications Medication Instructions Recorded Confirmed Type ascorbic acid (vitamin C) 500 mg 500 mg PO QAM 07/16/23 07/16/23 History tablet cannabidiol 100 mg/mL oral solution 0 mg PO BID 07/16/23 07/16/23 History cholecalciferol (vitamin D3) 50 50 mcg PO QAM 07/16/23 07/16/23 History mcg (2,000 unit) capsule donepezil 10 mg tablet 10 mg PO DAILY 07/16/23 07/16/23 History fexofenadine 180 mg tablet 180 mg PO QAM 07/16/23 07/16/23 History fluticasone propionate 50 2 spray intranasal DAILY 07/16/23 07/16/23 History mcg/actuation nasal spray,suspension guaifenesin 200 mg tablet 200 mg PO QAM 07/16/23 07/16/23 History melatonin 5 mg disintegrating 5 mg PO HS PRN Insomnia 07/16/23 07/16/23 History tablet quetiapine 25 mg tablet 25 mg PO HS 07/16/23 07/16/23 History zinc 50 mg capsule 50 mg PO QAM 07/16/23 07/16/23 History Allergies Allergy/AdvReac Type Severity Reaction Status Date / Time pollen extracts Allergy Unknown Verified 07/16/23 22:17 Past Med/Surg History Medical History No pertinent family history Dementia Surgical History No pertinent past surgical history Social History Smoking Status: Never smoker Preferred Language: Belizean Feels Safe at Home: Yes Physical Exam 2 Vital Signs: Vital Signs - 24 hr 07/16/23 17:17 07/16/23 19:54 07/16/23 20:07 Temperature 36.4 C L Temperature Source Temporal Artery Sc an Pulse Rate 81 Pulse Rate from Sp O2 Sensor Respiratory Rate 19 Blood Pressure 117/81 Blood Pressure [Le ft Arm] Blood Pressure Elizabeth n 93 Blood Pressure Elizabeth n [Left Arm] Pulse Oximetry 95 95 Pulse Oximetry [Ex ercises] 88 L Oxygen Delivery Me thod Room Air Room Air Room Air Sepsis Recent Feve r Within 48 Hours No Sepsis New/Unexpla ined Change in Men chichi Status N/A Sepsis Action Take n by Nursing No Action Required 07/16/23 20:27 07/16/23 20:58 07/16/23 21:13 Temperature Temperature Source Pulse Rate 83 Pulse Rate from Sp O2 Sensor Respiratory Rate 15 20 Blood Pressure Blood Pressure [Le ft Arm] 156/79 H 129/70 Blood Pressure Elizabeth n Blood Pressure Elizabeth n [Left Arm] 104 89 Pulse Oximetry 97 99 Pulse Oximetry [Ex ercises] Oxygen Delivery Me thod Room Air Sepsis Recent Feve r Within 48 Hours Sepsis New/Unexpla ined Change in Men chichi Status Sepsis Action Take n by Nursing 07/16/23 21:20 07/16/23 21:30 07/16/23 21:31 Temperature Temperature Source Pulse Rate 91 H 77 Pulse Rate from Sp O2 Sensor 82 Respiratory Rate Blood Pressure 122/90 Blood Pressure [Le ft Arm] Blood Pressure Elizabeth n 100 Blood Pressure Elizabeth n [Left Arm] Pulse Oximetry 96 Pulse Oximetry [Ex ercises] Oxygen Delivery Me thod Sepsis Recent Feve r Within 48 Hours Sepsis New/Unexpla ined Change in Men chichi Status Sepsis Action Take n by Nursing 07/16/23 21:31 07/16/23 21:40 07/16/23 21:50 Temperature Temperature Source Pulse Rate 79 84 85 Pulse Rate from Sp O2 Sensor Respiratory Rate 17 Blood Pressure Blood Pressure [Le ft Arm] Blood Pressure Elizabeth n Blood Pressure Elizabeth n [Left Arm] Pulse Oximetry Pulse Oximetry [Ex ercises] Oxygen Delivery Me thod Sepsis Recent Feve r Within 48 Hours Sepsis New/Unexpla ined Change in Men chichi Status Sepsis Action Take n by Nursing Physical Exam: Physical Exam HENT: Exam performed. - Head: Normocephalic and atraumatic. EYES: Conjunctivae and EOM are normal. Right eye exhibits no discharge. Left eye exhibits no discharge. No scleral icterus. NECK: Normal range of motion. Neck supple. No JVD present. CV: Rhonchi bilaterally. PULM/CHEST: Effort normal and breath sounds normal. No respiratory distress. No stridor. no wheezes. no rales. ABD: The abdomen is soft. There is no tenderness. NEURO: Motor and sensation grossly intact. Course Course 1911: The patient was evaluated in room B4A. A complete history and physical exam was performed Cardiac monitoring: An order was placed for continuous cardiac monitoring. The monitor shows a rate of 80 with sinus rhythm interpreted by oh 2009: Ambulatory pulse ox showed that the patient's oxygen saturation dropped into the mid 80s on room air. Patient was placed past in bed and supplemental oxygen via nasal cannula was applied to the patient. 2044: Vital signs stable on supplemental oxygen via nasal cannula. Labs show leukocytosis of 14.58. Troponin negative. COVID RSV influenza negative. Chest x-ray shows pneumonia similar to the who was in the adjacent bed showing pneumonia. Will conduct a BioFire screening to see if there are any viral components to the patient and his 's pneumonia before beginning antibiotics. Patient will be admitted to the [facility] hospitalist team Dr. Nobles and he is in agreement. 2129: Vital signs stable supplemental oxygen via nasal cannula. Bio fire negative. in the adjacent bed who is also being admitted for hypoxia and pneumonia bio fire is also negative. Patient be treated for community-acquired pneumonia with Rocephin and azithromycin. Medical Decision Making Laboratory Data Attestation: I reviewed the patient's lab results. 07/16/23 18:20 07/16/23 19:51 Lab Results 07/16/23 07/16/23 07/16/23 Range/Units 18:20 18:24 19:51 WBC 14.58 H (4.8-10.8) K/ul RBC 5.19 (4.70-6.10) M/uL Hgb 15.9 (14.0-18.0) g/dl POC Hgb (14.0-18.0) g/dl Hct 48.0 (42.0-52.0) % POC Hct (42-52) % MCV 92.5 (80.0-100.0) fL MCH 30.6 (25.0-34.0) pg MCHC 33.1 (32.0-36.0) g/dL RDW Std Deviation 43.7 (36.4-46.3) fL RDW Coeff of Catie 12.8 (11.5-14.5) % Plt Count 246 (130-400) K/uL MPV 10.6 (9.4-12.4) fL Immature Gran % (Auto) 0.3 % Neut % (Auto) 73.8 % Lymph % (Auto) 14.3 % [place] % (Auto) 7.1 % Eos % (Auto) 3.8 % Baso % (Auto) 0.7 % Neut # (Auto) 10.75 H (1.40-6.50) K/uL Lymph # (Auto) 2.08 (1.20-3.40) K/uL [place] # (Auto) 1.04 H (0.11-0.59) K/uL Eos # (Auto) 0.56 H (0.00-0.50) K/uL Baso # (Auto) 0.10 (0.00-0.20) K/uL Immature Gran # (Auto) 0.05 (0.01-0.20) K/uL POC Sodium (135-144) mmol/L Sodium TNP 137 POC Potassium (3.3-5.0) mmol/L Potassium TNP 3.7 POC Chloride (101-112) mmol/L Chloride 100 (98-107) mmol/L Carbon Dioxide 27 (21-32) mmol/L POC Total CO2 (24-31) mmol/L Anion Gap TNP POC Anion Gap (16-25) mmol/L POC BUN (7-18) mg/dl BUN 9 (6-23) mg/dl Creatinine 0.81 (0.6-1.4) mg/dl POC Creatinine (0.6-1.3) mg/dl Est Cr Clr Drug Dosing Not Reportable Est GFR ( Amer) 108.1 ml/min Est GFR (Non-Af Amer) 93.3 ml/min BUN/Creatinine Ratio 11.1 (10-20) Glucose 107 H (70-99(Fasting)) mg/dl POC Glucose (other) (70-99) mg/dl Calcium 9.5 (8.6-10.3) mg/dl POC Ioniz Calcium Brooke (1.12-1.32) mmol/l Total Bilirubin 0.7 (0.2-1.0) mg/dl AST TNP 20 ALT 21 (7-52) U/L Alkaline Phosphatase 77 (34-104) U/L Troponin I High Sens 6.2 (0-20) pg/ml Total Protein 8.9 H (6.0-8.3) gm/dl Albumin 4.4 (3.4-5.0) gm/dl Globulin 4.5 H (2.5-4.0) gm/dl Albumin/Globulin Ratio 1.0 (0.9-2) Adenovirus (PCR) (NotDetected) B. pertussis DNA (PCR) (NotDetected) B.parapertussis DNA PCR (NotDetected) C. pneumoniae DNA (PCR) (NotDetected) Coronavirus OC43 (PCR) (NotDetected) Coronavirus HKU1 (PCR) (NotDetected) Coronavirus 229E (PCR) (NotDetected) SARS-CoV-2 (PCR) NEGATIVE (Negative) Coronavirus NL63 (PCR) (NotDetected) Human Metapneumovir PCR (NotDetected) Influenza Type A (PCR) Negative (Neg) Influenza Type B (PCR) Negative (Neg) M. pneumoniae (PCR) (NotDetected) Parainfluenza 1 (PCR) (NotDetected) Parainfluenza 2 (PCR) (NotDetected) Parainfluenza 3 (PCR) (NotDetected) Parainfluenza 4 (PCR) (NotDetected) RSV (RT-PCR) Negative (Neg) RSV (PCR) (NotDetected) Entero/Rhino (PCR) (NotDetected) 07/16/23 07/16/23 Range/Units 19:53 19:58 WBC (4.8-10.8) K/ul RBC (4.70-6.10) M/uL Hgb (14.0-18.0) g/dl POC Hgb 16.0 (14.0-18.0) g/dl Hct (42.0-52.0) % POC Hct 47 (42-52) % MCV (80.0-100.0) fL MCH (25.0-34.0) pg MCHC (32.0-36.0) g/dL RDW Std Deviation (36.4-46.3) fL RDW Coeff of Catie (11.5-14.5) % Plt Count (130-400) K/uL MPV (9.4-12.4) fL Immature Gran % (Auto) % Neut % (Auto) % Lymph % (Auto) % [place] % (Auto) % Eos % (Auto) % Baso % (Auto) % Neut # (Auto) (1.40-6.50) K/uL Lymph # (Auto) (1.20-3.40) K/uL [place] # (Auto) (0.11-0.59) K/uL Eos # (Auto) (0.00-0.50) K/uL Baso # (Auto) (0.00-0.20) K/uL Immature Gran # (Auto) (0.01-0.20) K/uL POC Sodium 139 (135-144) mmol/L Sodium POC Potassium 3.8 (3.3-5.0) mmol/L Potassium POC Chloride 101 (101-112) mmol/L Chloride (98-107) mmol/L Carbon Dioxide (21-32) mmol/L POC Total CO2 27 (24-31) mmol/L Anion Gap POC Anion Gap 15.0 L (16-25) mmol/L POC BUN 8 (7-18) mg/dl BUN (6-23) mg/dl Creatinine (0.6-1.4) mg/dl POC Creatinine 0.8 (0.6-1.3) mg/dl Est Cr Clr Drug Dosing Est GFR ( Amer) ml/min Est GFR (Non-Af Amer) ml/min BUN/Creatinine Ratio (10-20) Glucose (70-99(Fasting)) mg/dl POC Glucose (other) 121 H (70-99) mg/dl Calcium (8.6-10.3) mg/dl POC Ioniz Calcium [place]oke 1.12 (1.12-1.32) mmol/l Total Bilirubin (0.2-1.0) mg/dl AST ALT (7-52) U/L Alkaline Phosphatase (34-104) U/L Troponin I High Sens (0-20) pg/ml Total Protein (6.0-8.3) gm/dl Albumin (3.4-5.0) gm/dl Globulin (2.5-4.0) gm/dl Albumin/Globulin Ratio (0.9-2) Adenovirus (PCR) Not Detected (NotDetected) B. pertussis DNA (PCR) Not Detected (NotDetected) B.parapertussis DNA PCR Not Detected (NotDetected) C. pneumoniae DNA (PCR) Not Detected (NotDetected) Coronavirus OC43 (PCR) Not Detected (NotDetected) Coronavirus HKU1 (PCR) Not Detected (NotDetected) Coronavirus 229E (PCR) Not Detected (NotDetected) SARS-CoV-2 (PCR) Not Detected (Negative) Coronavirus NL63 (PCR) Not Detected (NotDetected) Human Metapneumovir PCR Not Detected (NotDetected) Influenza Type A (PCR) Not Detected (Neg) Influenza Type B (PCR) Not Detected (Neg) M. pneumoniae (PCR) Not Detected (NotDetected) Parainfluenza 1 (PCR) Not Detected (NotDetected) Parainfluenza 2 (PCR) Not Detected (NotDetected) Parainfluenza 3 (PCR) Not Detected (NotDetected) Parainfluenza 4 (PCR) Not Detected (NotDetected) RSV (RT-PCR) (Neg) RSV (PCR) Not Detected (NotDetected) Entero/Rhino (PCR) Not Detected (NotDetected) Imaging Data Attestation: I personally reviewed and interpreted this imaging study as follows: My Impression: Chest x-ray: Faint airspace opacities likely representing pneumonia. Radiologist's Impression: Chest X-Ray 07/16/23 17:21 XR chest 1V portable CLINICAL HISTORY: flu like symptoms, low oxygen levels TECHNIQUE: Single frontal radiograph of the chest was obtained. Comparison: None available at the time of this dictation. FINDINGS: No lines and tubes are seen. The cardiomediastinal silhouette is normal. The lungs are clear. No evidence of pleural effusion or pneumothorax. IMPRESSION: No acute abnormalities and in particular no radiographic evidence of pneumonia. ACT 112: Negative or not required by law. Electronically signed by: Sriram Singh M.D. 07/16/2023 8:50 PM ECG Data Attestation: I personally reviewed and interpreted this ECG as follows: Rate (beats per minute): 83 Rhythm: normal sinus Findings: + RBBB and + prolonged QT; no ST depression or no ST elevation Additional Comments: QTc 500 MDM Narrative 1911: The patient was evaluated in room B4A. A complete history and physical exam was performed Cardiac monitoring: An order was placed for continuous cardiac monitoring. The monitor shows a rate of 80 with sinus rhythm interpreted by me 2009: Ambulatory pulse ox showed that the patient's oxygen saturation dropped into the mid 80s on room air. Patient was placed past in bed and supplemental oxygen via nasal cannula was applied to the patient. 2044: Vital signs stable on supplemental oxygen via nasal cannula. Labs show leukocytosis of 14.58. Troponin negative. COVID RSV influenza negative. Chest x-ray shows pneumonia similar to the who was in the adjacent bed showing pneumonia. Will conduct a BioFire screening to see if there are any viral components to the patient and his 's pneumonia before beginning antibiotics. Patient will be admitted to the [facility] Hospitalist team Dr. Nobles and he is in agreement. 2129: Vital signs stable supplemental oxygen via nasal cannula. Bio fire negative. in the adjacent bed who is also being admitted for hypoxia and pneumonia bio fire is also negative. Patient be treated for community-acquired pneumonia with Rocephin and azithromycin. Impression & Plan Hypoxia, Pneumonia, Dementia Critical Care Time Critical Care Time: Yes Total Critical Care Time: 60 I have personally spent greater than 60 minutes of critical care time in the direct management of this patient. This includes bedside care, interpretation of diagnostic studies, and testing, discussion with consultants, patient, and family members, and other required patient management activities. This 60 minutes is in excess of all separately billable procedures. Discharge Plan Visit Data Chief Complaint: Illness Stated Complaint: ILLNESS, DIARRHEA ED Provider: Hardeep Simon Discharge Problem: Hypoxia, Pneumonia, Dementia Patient Disposition: Admitted As Inpatient Forms Stand Alone Forms: [facility] Prescriptions Prescriptions: No Action donepezil 10 mg tablet 10 mg PO DAILY Rx Instructions: TAKE THIS MED WITH THE LARGEST MEAL OF THE DAY. quetiapine 25 mg tablet 25 mg PO HS fexofenadine [Dilcia] 180 mg Tablet 180 mg PO QAM zinc 50 mg Capsule 50 mg PO QAM melatonin 5 mg Tablet,Disintegrating 5 mg PO HS PRN (Reason: Insomnia) ascorbic acid (vitamin C) 500 mg Tablet 500 mg PO QAM guaifenesin 200 mg Tablet 200 mg PO QAM cholecalciferol (vitamin D3) 50 mcg (2,000 unit) Capsule 50 mcg PO QAM fluticasone propionate 50 mcg/actuation [place],Suspension 2 spray INTRANASAL DAILY Rx Instructions: administer into each nostril cannabidiol 100 mg/mL Solution 0 mg PO BID Rx Instructions: TAKE 0.3ML AM AND 0.3ML PM Referrals Referrals: Van Mccormick DO [Primary Care Provider] - Discharge Problem: Pneumonia Qualifiers: Pneumonia type: due to unspecified organism Laterality: unspecified laterality
[2023-07-16 22:26] LABS: Magnesium 2.3 mg/dl (1.7-2.4)
[2023-07-16 23:02] LABS: Partial Thromboplastin Ratio 1.2; Partial Thromboplastin Time 33 Seconds (21-31)
--- NOTE | 2023-07-16 23:59 | History & Physical Report ---
Date of Service July 16, 2023 History of Present Illness Primary Care Provider: Van Mccormick DO Allergies Allergy/AdvReac Type Severity Reaction Status Date / Time pollen extracts Allergy Unknown Verified 07/16/23 22:17 Home Medications Medication Instructions Recorded Confirmed Type ascorbic acid (vitamin C) 500 mg 500 mg PO QAM 07/16/23 07/16/23 History tablet cannabidiol 100 mg/mL oral solution 30 mg PO BID 07/16/23 07/16/23 History cholecalciferol (vitamin D3) 50 50 mcg PO QAM 07/16/23 07/16/23 History mcg (2,000 unit) capsule donepezil 10 mg tablet 10 mg PO DAILY 07/16/23 07/16/23 History fexofenadine 180 mg tablet 180 mg PO QAM 07/16/23 07/16/23 History fluticasone propionate 50 2 spray intranasal DAILY 07/16/23 07/16/23 History mcg/actuation nasal spray,suspension guaifenesin 200 mg tablet 200 mg PO QAM 07/16/23 07/16/23 History magnesium 250 mg tablet 250 mg PO QAM 07/16/23 07/16/23 History melatonin 5 mg disintegrating 5 mg PO HS PRN Insomnia 07/16/23 07/16/23 History tablet quetiapine 25 mg tablet 25 mg PO HS 07/16/23 07/16/23 History zinc 50 mg capsule 50 mg PO QAM 07/16/23 07/16/23 History Past Med/Surg History Medical History No pertinent family history Dementia Surgical History No pertinent past surgical history Social History Smoking Status: Never smoker Preferred Language: Korean Feels Safe at Home: Yes Results & Data Results & Data Vital Signs (Past 12 Hours) Vital Signs Temp Pulse Resp BP BP Pulse Ox Pulse Ox 07/16/23 23:00 83 27 H 07/16/23 22:30 87 23 07/16/23 22:01 144/82 H 07/16/23 22:01 81 28 H 07/16/23 22:00 86 25 H 07/16/23 21:50 85 17 07/16/23 21:40 84 07/16/23 21:31 79 07/16/23 21:31 122/90 07/16/23 21:30 77 07/16/23 21:20 91 H 96 07/16/23 21:13 83 20 07/16/23 20:58 129/70 99 07/16/23 20:27 15 156/79 H 97 07/16/23 20:07 88 L 07/16/23 19:54 95 07/16/23 17:17 36.4 C L 81 19 117/81 95 O2 Del Method 07/16/23 23:00 07/16/23 22:30 07/16/23 22:01 07/16/23 22:01 07/16/23 22:00 07/16/23 21:50 07/16/23 21:40 07/16/23 21:31 07/16/23 21:31 07/16/23 21:30 07/16/23 21:20 07/16/23 21:13 07/16/23 20:58 07/16/23 20:27 Room Air 07/16/23 20:07 Room Air 07/16/23 19:54 Room Air 07/16/23 17:17 Room Air Laboratory Results Laboratory Results WBC 14.58 K/ul (4.8-10.8) H 07/16/23 18:20 RBC 5.19 M/uL (4.70-6.10) 07/16/23 18:20 Hgb 15.9 g/dl (14.0-18.0) 07/16/23 18:20 POC Hgb 16.0 g/dl (14.0-18.0) 07/16/23 19:58 Hct 48.0 % (42.0-52.0) 07/16/23 18:20 POC Hct 47 % (42-52) 07/16/23 19:58 MCV 92.5 fL (80.0-100.0) 07/16/23 18:20 MCH 30.6 pg (25.0-34.0) 07/16/23 18:20 MCHC 33.1 g/dL (32.0-36.0) 07/16/23 18:20 RDW Std Deviation 43.7 fL (36.4-46.3) 07/16/23 18:20 RDW Coeff of Catie 12.8 % (11.5-14.5) 07/16/23 18:20 Plt Count 246 K/uL (130-400) 07/16/23 18:20 MPV 10.6 fL (9.4-12.4) 07/16/23 18:20 Immature Gran % (Auto) 0.3 % 07/16/23 18:20 Neut % (Auto) 73.8 % 07/16/23 18:20 Lymph % (Auto) 14.3 % 07/16/23 18:20 [place] % (Auto) 7.1 % 07/16/23 18:20 Eos % (Auto) 3.8 % 07/16/23 18:20 Baso % (Auto) 0.7 % 07/16/23 18:20 Neut # (Auto) 10.75 K/uL (1.40-6.50) H 07/16/23 18:20 Lymph # (Auto) 2.08 K/uL (1.20-3.40) 07/16/23 18:20 [place] # (Auto) 1.04 K/uL (0.11-0.59) H 07/16/23 18:20 Eos # (Auto) 0.56 K/uL (0.00-0.50) H 07/16/23 18:20 Baso # (Auto) 0.10 K/uL (0.00-0.20) 07/16/23 18:20 Immature Gran # (Auto) 0.05 K/uL (0.01-0.20) 07/16/23 18:20 APTT 33 Seconds (21-31) H 07/16/23 19:53 PTT Ratio 1.2 07/16/23 19:53 POC Sodium 139 mmol/L (135-144) 07/16/23 19:58 Sodium 137 mmol/L (136-145) 07/16/23 19:51 POC Potassium 3.8 mmol/L (3.3-5.0) 07/16/23 19:58 Potassium 3.7 mmol/L (3.5-5.1) 07/16/23 19:51 POC Chloride 101 mmol/L (101-112) 07/16/23 19:58 Chloride 100 mmol/L (98-107) 07/16/23 18:20 Carbon Dioxide 27 mmol/L (21-32) 07/16/23 18:20 POC Total CO2 27 mmol/L (24-31) 07/16/23 19:58 Anion Gap TNP 07/16/23 18:20 POC Anion Gap 15.0 mmol/L (16-25) L 07/16/23 19:58 POC BUN 8 mg/dl (7-18) 07/16/23 19:58 BUN 9 mg/dl (6-23) 07/16/23 18:20 Creatinine 0.81 mg/dl (0.6-1.4) 07/16/23 18:20 POC Creatinine 0.8 mg/dl (0.6-1.3) 07/16/23 19:58 Est Cr Clr Drug Dosing Not Reportable 07/16/23 18:20 Est GFR ( Amer) 108.1 ml/min 07/16/23 18:20 Est GFR (Non-Af Amer) 93.3 ml/min 07/16/23 18:20 BUN/Creatinine Ratio 11.1 (10-20) 07/16/23 18:20 Glucose 107 mg/dl (70-99(Fasting)) H 07/16/23 18:20 POC Glucose (other) 121 mg/dl (70-99) H 07/16/23 19:58 Calcium 9.5 mg/dl (8.6-10.3) 07/16/23 18:20 POC Ioniz Calcium Brooke 1.12 mmol/l (1.12-1.32) 07/16/23 19:58 Magnesium 2.3 mg/dl (1.7-2.4) 07/16/23 19:51 Total Bilirubin 0.7 mg/dl (0.2-1.0) 07/16/23 18:20 AST 20 U/L (13-39) 07/16/23 19:51 ALT 21 U/L (7-52) 07/16/23 18:20 Alkaline Phosphatase 77 U/L (34-104) 07/16/23 18:20 Troponin I High Sens 6.2 pg/ml (0-20) 07/16/23 18:20 Total Protein 8.9 gm/dl (6.0-8.3) H 07/16/23 18:20 Albumin 4.4 gm/dl (3.4-5.0) 07/16/23 18:20 Globulin 4.5 gm/dl (2.5-4.0) H 07/16/23 18:20 Albumin/Globulin Ratio 1.0 (0.9-2) 07/16/23 18:20 Adenovirus (PCR) Not Detected (NotDetected) 07/16/23 19:53 B. pertussis DNA (PCR) Not Detected (NotDetected) 07/16/23 19:53 B.parapertussis DNA PCR Not Detected (NotDetected) 07/16/23 19:53 C. pneumoniae DNA (PCR) Not Detected (NotDetected) 07/16/23 19:53 Coronavirus OC43 (PCR) Not Detected (NotDetected) 07/16/23 19:53 Coronavirus HKU1 (PCR) Not Detected (NotDetected) 07/16/23 19:53 Coronavirus 229E (PCR) Not Detected (NotDetected) 07/16/23 19:53 SARS-CoV-2 (PCR) Not Detected (NotDetected) 07/16/23 19:53 Coronavirus NL63 (PCR) Not Detected (NotDetected) 07/16/23 19:53 Human Metapneumovir PCR Not Detected (NotDetected) 07/16/23 19:53 Influenza Type A (PCR) Not Detected (NotDetected) 07/16/23 19:53 Influenza Type B (PCR) Not Detected (NotDetected) 07/16/23 19:53 M. pneumoniae (PCR) Not Detected (NotDetected) 07/16/23 19:53 Parainfluenza 1 (PCR) Not Detected (NotDetected) 07/16/23 19:53 Parainfluenza 2 (PCR) Not Detected (NotDetected) 07/16/23 19:53 Parainfluenza 3 (PCR) Not Detected (NotDetected) 07/16/23 19:53 Parainfluenza 4 (PCR) Not Detected (NotDetected) 07/16/23 19:53 RSV (RT-PCR) Negative (Neg) 07/16/23 18:24 RSV (PCR) Not Detected (NotDetected) 07/16/23 19:53 Entero/Rhino (PCR) Not Detected (NotDetected) 07/16/23 19:53 Impressions Chest X-Ray 07/16/23 17:21 XR chest 1V portable CLINICAL HISTORY: flu like symptoms, low oxygen levels TECHNIQUE: Single frontal radiograph of the chest was obtained. Comparison: None available at the time of this dictation. FINDINGS: No lines and tubes are seen. The cardiomediastinal silhouette is normal. The lungs are clear. No evidence of pleural effusion or pneumothorax. IMPRESSION: No acute abnormalities and in particular no radiographic evidence of pneumonia. ACT 112: Negative or not required by law. Electronically signed by: Sriram Singh M.D. 07/16/2023 8:50 PM
[2023-07-17] MEDS ORDERED: ALBUT/IPRATROP 3MG/0.5MG NEB 3 ML VIAL NEB STA (00:18)
[2023-07-17] MEDS ORDERED: OPTIRAY 320 125ml IV ONE (00:22)
--- NOTE | 2023-07-17 00:39 | History & Physical Report ---
Date of Service July 17, 2023 Assessment & Plan (1) Acute hypoxemic respiratory failure: Plan: Multifactorial: Acute PE with strain, initial occurrence as per ; rule out LE DVT as source atypical pneumonia, no overt sepsis for now bronchial asthma, no clinical wheezing on exam Hyperlipidemia not on statin Rx prediabetes, hemoglobin A1c of 6.3 last October 2022 Dementia Medical telemetry IV heparin LE venous Dopplers rule out DVT Pulmonary consult re: PE with strain, respiratory failure Doxycycline Delirium precautions DVT prophylaxis. Lovenox subcu Full code Total critical care time was 45 minutes. Case discussed with Dr. Armas of pulmonology who is in agreement with anticoagulation. Patient requesting to be admitted in the same room as patient. Ms. Sissy Lo, contact #[phone]. Text document was generated using [employer] voice recognition software. It may contain grammatical or spelling errors. Kindly contact undersigned for clarification of any documentation item in question. History of Present Illness Chief Complaint: told me to come Primary Care Provider: Van Mccormick DO History obtained from patient, family, and records. Limited history from patient secondary to dementia and hearing impairment. Medical history significant for bronchial asthma, hyperlipidemia, prediabetes, GERD, dementia. Patient noted to have junky cough symptoms productive of yellow sputum over the last few days. Patient sick with respiratory symptoms. No witnessed aspiration. Patient denies chest pain complaints. Not moving a lot and just laying in his recliner as per . Shortness of breath mostly on exertion as per patient. Patient consulted ER along with his . Lowest O2 sats of 80s documented at the ER. 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 Allergies Allergy/AdvReac Type Severity Reaction Status Date / Time pollen extracts Allergy Unknown Verified 07/17/23 08:55 Home Medications Medication Instructions Recorded Confirmed Type ATORVASTATIN (LIPITOR) 10 mg PO DAILY #0 tabs 05/09/17 History Acetaminophen (Tylenol) 1,000 mg PO prn ud #0 tabs 06/16/17 History Ranitidine (Zantac) 150 mg PO BID PRN heartburn #0 tabs 06/17/17 History Sildenafil Citrate (Viagra) 25 - 50 mg PO PRN PRN intercourse 06/17/17 History #0 tabs Albuterol Sulfate (Proair 2 puff inhalation QID PRN 06/24/17 History Respiclick) SOB/Wheezing ##0 Guaifenesin/Codeine (Robitussin-Ac 10 ml PO Q6 PRN Cough 4 days #240 06/24/17 History Syrup) mL ascorbic acid (vitamin C) 500 mg 500 mg PO QAM 07/16/23 07/16/23 History tablet cannabidiol 100 mg/mL oral solution 30 mg PO BID 07/16/23 07/16/23 History cholecalciferol (vitamin D3) 50 50 mcg PO QAM 07/16/23 07/16/23 History mcg (2,000 unit) capsule donepezil 10 mg tablet 10 mg PO DAILY 07/16/23 07/16/23 History fexofenadine 180 mg tablet 180 mg PO QAM 07/16/23 07/16/23 History fluticasone propionate 50 2 spray intranasal DAILY 07/16/23 07/16/23 History mcg/actuation nasal spray,suspension guaifenesin 200 mg tablet 200 mg PO QAM 07/16/23 07/16/23 History magnesium 250 mg tablet 250 mg PO QAM 07/16/23 07/16/23 History melatonin 5 mg disintegrating 5 mg PO HS PRN Insomnia 07/16/23 07/16/23 History tablet quetiapine 25 mg tablet 25 mg PO HS 07/16/23 07/16/23 History zinc 50 mg capsule 50 mg PO QAM 07/16/23 07/16/23 History Past Med/Surg History Medical History (Updated 07/17/23 @ 09:15 by Yasir Mohamud MD) No pertinent family history Dementia Surgical History (Updated 07/17/23 @ 08:55 by Louise Ma) No pertinent past surgical history Social History (System 07/17/23 @ 08:55 by Louise Ma) Smoking Status: Never smoker Hx Alcohol Use: No Preferred Language: [place] Citizen Communication Ability: Impaired Harness 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 Required: No Beliefs That Will Affect Care: None Current Living Situation: Spouse Feels Safe at Home: Yes Assistive Devices: None Review of Systems Review of Systems: Could not be reliably obtained secondary to dementia and hearing impairment Physical Exam Physical Exam: GENERAL: Comfortable, demented, pleasant, no respiratory distress SKIN: Normal color, warm HEENT: [place] palpebral conjunctivae, no ptosis, dry buccal mucosa, nasal cannula in place NECK : Supple, no tenderness CHEST : Decreased breath sounds, no tenderness HEART : RRR, no obvious murmurs ABDOMEN: Some distention, nontender EXTREMITIES : Minimal LLE swelling, no LE tenderness, no other conspicuous deformities noted NEUROLOGIC : Demented, no facial asymmetry, no other gross focality Results & Data Results & Data Vital Signs (Past 12 Hours) Vital Signs Temp Pulse Resp BP BP Pulse Ox Pulse Ox 07/17/23 00:00 75 23 07/16/23 23:30 82 24 07/16/23 23:00 83 27 H 07/16/23 22:30 87 23 07/16/23 22:01 144/82 H 07/16/23 22:01 81 28 H 07/16/23 22:00 86 25 H 07/16/23 21:50 85 17 07/16/23 21:40 84 07/16/23 21:31 79 07/16/23 21:31 122/90 07/16/23 21:30 77 07/16/23 21:20 91 H 96 07/16/23 21:13 83 20 07/16/23 20:58 129/70 99 07/16/23 20:27 15 156/79 H 97 07/16/23 20:07 88 L 07/16/23 19:54 95 07/16/23 17:17 36.4 C L 81 19 117/81 95 O2 Del Method 07/17/23 00:00 07/16/23 23:30 07/16/23 23:00 07/16/23 22:30 07/16/23 22:01 07/16/23 22:01 07/16/23 22:00 07/16/23 21:50 07/16/23 21:40 07/16/23 21:31 07/16/23 21:31 07/16/23 21:30 07/16/23 21:20 07/16/23 21:13 07/16/23 20:58 07/16/23 20:27 Room Air 07/16/23 20:07 Room Air 07/16/23 19:54 Room Air 07/16/23 17:17 Room Air Laboratory Results Laboratory Results WBC 14.58 K/ul (4.8-10.8) H 07/16/23 18:20 RBC 5.19 M/uL (4.70-6.10) 07/16/23 18:20 Hgb 15.9 g/dl (14.0-18.0) 07/16/23 18:20 POC Hgb 16.0 g/dl (14.0-18.0) 07/16/23 19:58 Hct 48.0 % (42.0-52.0) 07/16/23 18:20 POC Hct 47 % (42-52) 07/16/23 19:58 MCV 92.5 fL (80.0-100.0) 07/16/23 18:20 MCH 30.6 pg (25.0-34.0) 07/16/23 18:20 MCHC 33.1 g/dL (32.0-36.0) 07/16/23 18:20 RDW Std Deviation 43.7 fL (36.4-46.3) 07/16/23 18:20 RDW Coeff of Catie 12.8 % (11.5-14.5) 07/16/23 18:20 Plt Count 246 K/uL (130-400) 07/16/23 18:20 MPV 10.6 fL (9.4-12.4) 07/16/23 18:20 Immature Gran % (Auto) 0.3 % 07/16/23 18:20 Neut % (Auto) 73.8 % 07/16/23 18:20 Lymph % (Auto) 14.3 % 07/16/23 18:20 Storey % (Auto) 7.1 % 07/16/23 18:20 Eos % (Auto) 3.8 % 07/16/23 18:20 Baso % (Auto) 0.7 % 07/16/23 18:20 Neut # (Auto) 10.75 K/uL (1.40-6.50) H 07/16/23 18:20 Lymph # (Auto) 2.08 K/uL (1.20-3.40) 07/16/23 18:20 Storey # (Auto) 1.04 K/uL (0.11-0.59) H 07/16/23 18:20 Eos # (Auto) 0.56 K/uL (0.00-0.50) H 07/16/23 18:20 Baso # (Auto) 0.10 K/uL (0.00-0.20) 07/16/23 18:20 Immature Gran # (Auto) 0.05 K/uL (0.01-0.20) 07/16/23 18:20 APTT 33 Seconds (21-31) H 07/16/23 19:53 PTT Ratio 1.2 07/16/23 19:53 POC Sodium 139 mmol/L (135-144) 07/16/23 19:58 Sodium 137 mmol/L (136-145) 07/16/23 19:51 POC Potassium 3.8 mmol/L (3.3-5.0) 07/16/23 19:58 Potassium 3.7 mmol/L (3.5-5.1) 07/16/23 19:51 POC Chloride 101 mmol/L (101-112) 07/16/23 19:58 Chloride 100 mmol/L (98-107) 07/16/23 18:20 Carbon Dioxide 27 mmol/L (21-32) 07/16/23 18:20 POC Total CO2 27 mmol/L (24-31) 07/16/23 19:58 Anion Gap TNP 07/16/23 18:20 POC Anion Gap 15.0 mmol/L (16-25) L 07/16/23 19:58 POC BUN 8 mg/dl (7-18) 07/16/23 19:58 BUN 9 mg/dl (6-23) 07/16/23 18:20 Creatinine 0.81 mg/dl (0.6-1.4) 07/16/23 18:20 POC Creatinine 0.8 mg/dl (0.6-1.3) 07/16/23 19:58 Est Cr Clr Drug Dosing Not Reportable 07/16/23 18:20 Est GFR ( Amer) 108.1 ml/min 07/16/23 18:20 Est GFR (Non-Af Amer) 93.3 ml/min 07/16/23 18:20 BUN/Creatinine Ratio 11.1 (10-20) 07/16/23 18:20 Glucose 107 mg/dl (70-99(Fasting)) H 07/16/23 18:20 POC Glucose (other) 121 mg/dl (70-99) H 07/16/23 19:58 Calcium 9.5 mg/dl (8.6-10.3) 07/16/23 18:20 POC Ioniz Calcium Brooke 1.12 mmol/l (1.12-1.32) 07/16/23 19:58 Magnesium 2.3 mg/dl (1.7-2.4) 07/16/23 19:51 Total Bilirubin 0.7 mg/dl (0.2-1.0) 07/16/23 18:20 AST 20 U/L (13-39) 07/16/23 19:51 ALT 21 U/L (7-52) 07/16/23 18:20 Alkaline Phosphatase 77 U/L (34-104) 07/16/23 18:20 Troponin I High Sens 6.2 pg/ml (0-20) 07/16/23 18:20 Total Protein 8.9 gm/dl (6.0-8.3) H 07/16/23 18:20 Albumin 4.4 gm/dl (3.4-5.0) 07/16/23 18:20 Globulin 4.5 gm/dl (2.5-4.0) H 07/16/23 18:20 Albumin/Globulin Ratio 1.0 (0.9-2) 07/16/23 18:20 Adenovirus (PCR) Not Detected (NotDetected) 07/16/23 19:53 B. pertussis DNA (PCR) Not Detected (NotDetected) 07/16/23 19:53 B.parapertussis DNA PCR Not Detected (NotDetected) 07/16/23 19:53 C. pneumoniae DNA (PCR) Not Detected (NotDetected) 07/16/23 19:53 Coronavirus OC43 (PCR) Not Detected (NotDetected) 07/16/23 19:53 Coronavirus HKU1 (PCR) Not Detected (NotDetected) 07/16/23 19:53 Coronavirus 229E (PCR) Not Detected (NotDetected) 07/16/23 19:53 SARS-CoV-2 (PCR) Not Detected (NotDetected) 07/16/23 19:53 Coronavirus NL63 (PCR) Not Detected (NotDetected) 07/16/23 19:53 Human Metapneumovir PCR Not Detected (NotDetected) 07/16/23 19:53 Influenza Type A (PCR) Not Detected (NotDetected) 07/16/23 19:53 Influenza Type B (PCR) Not Detected (NotDetected) 07/16/23 19:53 M. pneumoniae (PCR) Not Detected (NotDetected) 07/16/23 19:53 Parainfluenza 1 (PCR) Not Detected (NotDetected) 07/16/23 19:53 Parainfluenza 2 (PCR) Not Detected (NotDetected) 07/16/23 19:53 Parainfluenza 3 (PCR) Not Detected (NotDetected) 07/16/23 19:53 Parainfluenza 4 (PCR) Not Detected (NotDetected) 07/16/23 19:53 RSV (RT-PCR) Negative (Neg) 07/16/23 18:24 RSV (PCR) Not Detected (NotDetected) 07/16/23 19:53 Entero/Rhino (PCR) Not Detected (NotDetected) 07/16/23 19:53 Impressions Chest X-Ray 07/16/23 17:21 XR chest 1V portable CLINICAL HISTORY: flu like symptoms, low oxygen levels TECHNIQUE: Single frontal radiograph of the chest was obtained. Comparison: None available at the time of this dictation. FINDINGS: No lines and tubes are seen. The cardiomediastinal silhouette is normal. The lungs are clear. No evidence of pleural effusion or pneumothorax. IMPRESSION: No acute abnormalities and in particular no radiographic evidence of pneumonia. ACT 112: Negative or not required by law. Electronically signed by: Sriram Singh M.D. 07/16/2023 8:[address] chest: 1. Bilateral pulmonary emboli noted in the left posterior basal segments and lateral basal segment proximally. There is some extension to the proximal left apical segment. There is complete opacification of the proximal right upper lobe with eccentric partial filling defect to involve medial aspect of the right middle lobe. 2. Evidence of right heart strain with the RV/LV ratio measuring 1.35. 3. Subtle subsegmental ground-glass opacities in the upper lobes. No focal airspace consolidation. No pleural effusion or pneumothorax. Diagnostic Findings EKG as per my interpretation : Rate 85, NSR, LAD, LAFB, incomplete RBBB, T wave abnormalities inferior leads Code Status & VTE Plan VTE Prophylaxis Plan VTE Prophylaxis will be ordered: Yes
[2023-07-17] MEDS ORDERED: ACETAMINOPHEN 325 MG TAB PO PRN (00:57)
--- NOTE | 2023-07-17 01:04 | CT Scan Report ---
Exam(s): CTA CHEST IV Amt: 107 ML OPTIRAY 320 EXAM: CT Angiography Chest With Intravenous Contrast CLINICAL HISTORY: sob. TECHNIQUE: Axial computed tomographic angiography images of the chest with intravenous contrast. CTDI is 26.38 mGy and DLP is 845.22 mGy-cm. Automated exposure control was utilized for the study. A dose lowering technique was utilized adhering to the principles of ALARA. MIP reconstructed images were created and reviewed. COMPARISON: No relevant prior studies available. FINDINGS: Limitations: There is extensive respiratory artifact, which degrades image quality throughout the examination. Pulmonary arteries: Bilateral pulmonary emboli noted in the left posterior basal segments and lateral basal segment proximally. There is some extension to the proximal left apical segment. There is complete opacification of the proximal right upper lobe with eccentric partial filling defect to involve medial aspect of the right middle lobe. Aorta: No acute findings. No thoracic aortic aneurysm. Lungs: Subtle subsegmental ground-glass opacities in the upper lobes. No focal airspace consolidation. Pleural space: Unremarkable. No significant effusion. No pneumothorax. Heart: Evidence of right heart strain with the RV/LV ratio measuring 1. 35. Cardiac chambers are normal in caliber. No pericardial effusion. Bones/joints: No acute fracture. No dislocation. Soft tissues: Unremarkable. Lymph nodes: Unremarkable. No enlarged lymph nodes. IMPRESSION: 1. Bilateral pulmonary emboli noted in the left posterior basal segments and lateral basal segment proximally. There is some extension to the proximal left apical segment. There is complete opacification of the proximal right upper lobe with eccentric partial filling defect to involve medial aspect of the right middle lobe. 2. Evidence of right heart strain with the RV/LV ratio measuring 1.35. 3. Subtle subsegmental ground-glass opacities in the upper lobes. No focal airspace consolidation. No pleural effusion or pneumothorax. Communications: Call Doctor Pulmonary Embolism Electronically signed by: Nikos Chan MD 07/17/23 01:03 AM
[2023-07-17] MEDS ORDERED: MELATONIN 3 MG TAB PO PRN (01:29)
[2023-07-17] MEDS ORDERED: HEPARIN SOD (PORCINE) 1000 UNIT/ML IV ONE (01:36)
[2023-07-17 01:54] LABS: Prothrombin Time 11.4 Seconds (9.0-12.0)
[2023-07-17] MEDS: HEPARIN SODIUM/DEXTROSE 25,000 UNITS/500 ML BAG IV SCH ×2 (02:17→22:04)
[2023-07-17] MEDS: Heparin IV Adult Wt-Based Standard w/ INITIAL Bolus Protocol IV SCH ×4 (02:21→04:00)
--- NOTE | 2023-07-17 03:48 | Ultrasound Report ---
Exam(s): US VENOUS BILATERAL LOWER EXTREMITIES EXAM: US Duplex Bilateral Lower Extremities Veins CLINICAL HISTORY: pe workup. TECHNIQUE: Real-time duplex ultrasound scan of the bilateral lower extremity veins integrating B-mode two-dimensional vascular structure, Doppler spectral analysis, color flow Doppler imaging and compression. COMPARISON: No relevant prior studies available. FINDINGS: Limitations: Evaluation is reportedly limited by patient confusion and inability to mobilize for the examination. Right deep veins: The right common femoral, proximal profunda femoral and superficial femoral veins are compressible and demonstrate normal color flow. 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 The other popliteal vein is patent. Right superficial veins: Unremarkable. No thrombus in the saphenofemoral junction. Left deep veins: There is extensive deep vein thrombosis involving the left lower extremity with partially occlusive thrombus in the proximal left common femoral vein and occlusive thrombus noted in the distal left common femoral vein, proximal left profunda femoral vein and throughout the left superficial femoral vein. There is partially occlusive thrombus in the left popliteal vein with only minimal flow noted internally. Intermittent thrombus noted in the left calf veins. Left superficial veins: Unremarkable. No thrombus in the saphenofemoral junction. Soft tissues: No acute findings. No popliteal cyst. Other findings: The right calf veins are patent. IMPRESSION: 1. 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 The other popliteal vein is patent. No proximal progression into the right superficial femoral or common femoral veins. 2. There is extensive deep vein thrombosis throughout the left lower extremity from the distal/peripheral aspect of the left common femoral vein through the popliteal vein and the calf veins, as detailed above. Communications: Verify Receipt with Nurse Electronically signed by: Nikos Chan MD 07/17/23 03:47 AM
[2023-07-17] MEDS: FEXOFENADINE HCL 180 MG TAB PO SCH (08:10)
[2023-07-17] MEDS: DONEPEZIL HCL 10 MG TAB PO SCH (08:10)
[2023-07-17] MEDS: DOXYCYCLINE HYCLATE 100 MG CAP PO SCH ×2 (08:10→21:13)
[2023-07-17] MEDS: FLUTICASONE PROPIONATE NA SPR 16 GM BTL SCH (08:13)
[2023-07-17 08:44] LABS: Basophils # (auto) 0.07 K/uL (0.00-0.20); Basophils % (auto) 0.6 %; Eosinophils # (auto) 0.34 K/uL (0.00-0.50); Eosinophils % (auto) 2.7 %; Hematocrit (blood only) 41.8 % (42.0-52.0); Immature Granulocytes # (auto) 0.05 K/uL (0.01-0.20); Immature Granulocytes % (auto) 0.4 %; Lymphocytes # (auto) 1.51 K/uL (1.20-3.40); Lymphocytes % (auto) 12.1 %; Mean Corpuscular Hemoglobin 30.7 pg (25.0-34.0); Mean Corpuscular Hgb Conc 33.5 g/dL (32.0-36.0); Mean Corpuscular Volume 91.7 fL (80.0-100.0); Mean Platelet Volume 9.7 fL (9.4-12.4); Monocytes # (auto) 0.82 K/uL (0.11-0.59); Monocytes % (auto) 6.6 %; Neutrophils % (auto) 77.6 %; Platelet Count 232 K/uL (130-400); RDW Coefficient of Variation 12.9 % (11.5-14.5); RDW Standard Deviation 42.9 fL (36.4-46.3); Red Blood Count 4.56 M/uL (4.70-6.10); White Blood Count 12.49 K/ul (4.8-10.8)
[2023-07-17] MEDS ORDERED: ENOXAPARIN INJ 40 MG/0.4 ML SYR SQ SCH (09:00)
[2023-07-17 09:01] LABS: Anion Gap 8 (3-11); BUN Creatinine Ratio 11.4 (10-20); Blood Urea Nitrogen 9 mg/dl (6-23); Calcium 9.1 mg/dl (8.6-10.3); Carbon Dioxide 28 mmol/L (21-32); Chloride 100 mmol/L (98-107); Creatinine Clr Calc Pharmacy 84.5 ml/min; Est GFR (Non-African American) 89.7 ml/min; Glucose 120 mg/dl (70-99(Fasting)); Sodium 136 mmol/L (136-145)
[2023-07-17 09:04] LABS: ANTI-Xa, UFH(UnfractionatedHep 0.63 IU/ml (0.3-0.7)
[2023-07-17] MEDS ORDERED: QUEtiapine FUMARATE 25 MG TABLET PO STA ×2 (09:40→16:05)
--- NOTE | 2023-07-17 11:02 | Pulmonary Consultation ---
Date of Consultation July 17, 2023 Assessment & Plan (1) Acute hypoxemic respiratory failure: (2) Pulmonary embolism: (3) DVT (deep venous thrombosis): Plan CTA chest 07/17/2023 personally reviewed: Motion degraded study Pulmonary emboli in the left lower segmental artery RV: LV 1:1 No significant mediastinal lymphadenopathy -- Acute hypoxic respiratory failure Secondary to PE sPESI: 0 Troponin negative, BNP within normal limits No indication for thrombolysis -- Acute DVT Left lower extremity Given the DVT is unprovoked, would recommend lifetime anticoagulation Plan: Continue with heparin drip Follow-up BNP and troponin Follow-up 2D echo Patient is already saturating 91-92% on room air. No indication for any thrombolysis Please note the above document was generated using voice recognition software. It may contain grammatical, syntax or spelling errors.Any formal questions or concerns about the content, text or information contained within the body of this dictation should be directly addressed to the provider for clarification.21 History of Present Illness Attending Physician: Micaela Reyes MD History of Present Illness 71-year-old male present to the hospital with complaints of shortness of breath Past medical history: Dyslipidemia, GERD, dementia Pulmonary consulted for pulmonary emboli Patient's was in the room at the time of examination, history was obtained from . Patient was saturating 91-92% on room air at the time of examination with heart rate in the 80s. He was not any respiratory distress Denied any chest pain, no abdominal pain, no leg pain. Was having subjective fever at home. No chills. No dysuria, diarrhea Patient usually is sitting on the chair but he walks around every couple of hours No recent travel history Denies any history of trauma. No history of hypercoagulable state in the family No history of any autoimmune disease Social history: Lifetime non-smoker Allergies Allergy/AdvReac Type Severity Reaction Status Date / Time pollen extracts Allergy Unknown Verified 07/17/23 08:55 Home Medications Medication Instructions Recorded Confirmed Type ATORVASTATIN (LIPITOR) 10 mg PO DAILY #0 tabs 05/09/17 History Acetaminophen (Tylenol) 1,000 mg PO prn ud #0 tabs 06/16/17 History Ranitidine (Zantac) 150 mg PO BID PRN heartburn #0 tabs 06/17/17 History Sildenafil Citrate (Viagra) 25 - 50 mg PO PRN PRN intercourse 06/17/17 History #0 tabs Albuterol Sulfate (Proair 2 puff inhalation QID PRN 06/24/17 History Respiclick) SOB/Wheezing ##0 Guaifenesin/Codeine (Robitussin-Ac 10 ml PO Q6 PRN Cough 4 days #240 06/24/17 History Syrup) mL ascorbic acid (vitamin C) 500 mg 500 mg PO QAM 07/16/23 07/16/23 History tablet cannabidiol 100 mg/mL oral solution 30 mg PO BID 07/16/23 07/16/23 History cholecalciferol (vitamin D3) 50 50 mcg PO QAM 07/16/23 07/16/23 History mcg (2,000 unit) capsule donepezil 10 mg tablet 10 mg PO DAILY 07/16/23 07/16/23 History fexofenadine 180 mg tablet 180 mg PO QAM 07/16/23 07/16/23 History fluticasone propionate 50 2 spray intranasal DAILY 07/16/23 07/16/23 History mcg/actuation nasal spray,suspension guaifenesin 200 mg tablet 200 mg PO QAM 07/16/23 07/16/23 History magnesium 250 mg tablet 250 mg PO QAM 07/16/23 07/16/23 History melatonin 5 mg disintegrating 5 mg PO HS PRN Insomnia 07/16/23 07/16/23 History tablet quetiapine 25 mg tablet 25 mg PO HS 07/16/23 07/16/23 History zinc 50 mg capsule 50 mg PO QAM 07/16/23 07/16/23 History Patient History Medical History (Updated 07/17/23 @ 15:37 by Kailee Armas MD, [facility]) No pertinent family history Dementia Surgical History (Updated 07/17/23 @ 08:55 by Louies Ma) No pertinent past surgical history Social History (System 07/17/23 @ 08:55 by Louise Ma) Smoking Status: Never smoker Hx Alcohol Use: No Preferred Language: [place]ian Communication Ability: Impaired 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 Beliefs That Will Affect Care: None Current Living Situation: Spouse Feels Safe at Home: Yes Assistive Devices: None Review of Systems 2 Review of Systems: All systems reviewed & are unremarkable except as noted in HPI & below Physical Exam 2 Physical Exam: Constitutional: No acute distress HEENT: EOMI, PERRLA, hard to hear Respiratory system: Decreased air entry bilaterally, no wheeze, rhonchi, mild crackles bilateral lower lobes CVS: S1-S2 positive, no murmurs or gallops Abdomen: Soft, nontender, nondistended, positive bowel sounds x4 Extremities: +2 pulses bilaterally radialis, no cyanosis, + pitting edema bilateral lower extremity Neuro: Awake alert oriented to self and place Psych: Normal mood and affect Skin: no rashes, warm and dry Lymphatic: no cervical or axillary lymphadenopathy Results & Data Results & Data Vital Signs (Past 12 Hours) Vital Signs Pulse Pulse Resp BP BP Pulse Ox O2 Del Method 07/17/23 07:53 Nasal Cannula 07/17/23 07:53 83 07/17/23 07:53 Nasal Cannula 07/17/23 07:39 117/77 07/17/23 07:24 87 90 Room Air, Nasal Cannula 07/17/23 07:21 85 07/17/23 05:17 84 18 127/77 96 Nasal Cannula 07/17/23 02:30 74 24 07/17/23 02:00 72 24 07/17/23 01:30 79 20 07/17/23 01:00 76 19 07/17/23 00:57 94 Nasal Cannula 07/17/23 00:30 79 21 07/17/23 00:00 75 23 07/16/23 23:30 82 24 07/16/23 23:00 83 27 H 07/16/23 22:30 87 23 07/16/23 22:01 144/82 H 07/16/23 22:01 81 28 H 07/16/23 22:00 86 25 H 07/16/23 21:50 85 17 07/16/23 21:40 84 07/16/23 21:31 79 07/16/23 21:31 122/90 07/16/23 21:30 77 07/16/23 21:20 91 H 96 07/16/23 21:13 83 20 07/16/23 20:58 129/70 99 07/16/23 20:27 15 156/79 H 97 Room Air O2 Flow Rate 07/17/23 07:53 2 07/17/23 07:53 07/17/23 07:53 2 07/17/23 07:39 07/17/23 07:24 2 07/17/23 07:21 07/17/23 05:17 2 07/17/23 02:30 07/17/23 02:00 07/17/23 01:30 07/17/23 01:00 07/17/23 00:57 3 07/17/23 00:30 07/17/23 00:00 07/16/23 23:30 07/16/23 23:00 07/16/23 22:30 07/16/23 22:01 07/16/23 22:01 07/16/23 22:00 07/16/23 21:50 07/16/23 21:40 07/16/23 21:31 07/16/23 21:31 07/16/23 21:30 07/16/23 21:20 07/16/23 21:13 07/16/23 20:58 07/16/23 20:27 Laboratory Results 07/17/23 08:22 07/17/23 09:09 PG Care Time/CCT Total # of Minutes Spent Total Time Spent with Patient: Total time spent is greater than 50% in coordination of care (as documented) at patient's floor/unit and/or counseling patient: Coding Level of Care Code 11717 INT INP/OBS CARE 3/75MIN Diagnoses Acute hypoxemic respiratory failure J96.01 Pulmonary embolism I26.99 DVT (deep venous thrombosis) I82.409
[2023-07-17 14:37] LABS: ANTI-Xa, UFH(UnfractionatedHep 0.43 IU/ml (0.3-0.7)
--- NOTE | 2023-07-17 15:22 | Communication Note ---
Date of Service: July 17, 2023 Evaluated patient at bedside. Pleasantly demented, hard of hearing. in bed next door--able to answer for patient regarding history, stating that she noticed his legs swelling for the past few days, but thought is was secondary to prolonged sitting. She then noted his cough and shortness of breath, but attributed it to the same cold like symptoms she was presenting with. Chest CTA 1. Bilateral pulmonary emboli noted in the left posterior basal segments and lateral basal segment proximally. There is some extension to the proximal left apical segment. There is complete opacification of the proximal right upper lobe with eccentric partial filling defect to involve medial aspect of the right middle lobe. 2. Evidence of right heart strain with the RV/LV ratio measuring 1.35. 3. Subtle subsegmental ground-glass opacities in the upper lobes. No focal airspace consolidation. No pleural effusion or pneumothorax. 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
[2023-07-17] MEDS ORDERED: OLANZapine 10 MG/2.1 ML SDV IM STA (16:06)
--- NOTE | 2023-07-17 17:25 | Electrocardiogram Report ---
Test Reason : Blood Pressure : / mmHG Vent. Rate : 083 BPM Atrial Rate : 083 BPM P-R Int : 174 ms QRS Dur : 124 ms QT Int : 426 ms P-R-T Axes : 074 -28 043 degrees QTc Int : 500 ms Normal sinus rhythm with sinus arrhythmia Right bundle branch block Abnormal ECG No previous ECGs available Confirmed by Shorty Wells ([id number]) on 07/17/2023 5:24:40 PM Referred By: REFERRED SELF Confirmed By:Jose Wells
--- NOTE | 2023-07-17 17:30 | Electrocardiogram Report ---
Test Reason : Blood Pressure : / mmHG Vent. Rate : 083 BPM Atrial Rate : 083 BPM P-R Int : 178 ms QRS Dur : 126 ms QT Int : 412 ms P-R-T Axes : 078 -27 028 degrees QTc Int : 484 ms Normal sinus rhythm Right bundle branch block Abnormal ECG When compared with ECG of 18-JUN-2017 06:38, QRS axis Shifted left T wave inversion now evident in Anterior leads QT has lengthened Confirmed by Shorty Wells ([id number]) on 07/17/2023 5:29:46 PM Referred By: REFERRED SELF Confirmed By:Jose Wells
[2023-07-17 21:13] LABS: ANTI-Xa, UFH(UnfractionatedHep 0.36 IU/ml (0.3-0.7)
[2023-07-17] MEDS: QUEtiapine FUMARATE 25 MG TABLET PO SCH (21:14)
[2023-07-18 07:05] LABS: Hematocrit (blood only) 40.5 % (42.0-52.0); Hemoglobin 13.6 g/dl (14.0-18.0); Mean Corpuscular Hemoglobin 30.5 pg (25.0-34.0); Mean Corpuscular Hgb Conc 33.6 g/dL (32.0-36.0); Mean Corpuscular Volume 90.8 fL (80.0-100.0); Mean Platelet Volume 9.8 fL (9.4-12.4); Platelet Count 219 K/uL (130-400); RDW Coefficient of Variation 12.9 % (11.5-14.5); RDW Standard Deviation 42.7 fL (36.4-46.3); Red Blood Count 4.46 M/uL (4.70-6.10); White Blood Count 10.44 K/ul (4.8-10.8)
[2023-07-18 07:30] LABS: Calcium 9.1 mg/dl (8.6-10.3); Creatinine Clr Calc Pharmacy 81.4 ml/min; Est GFR (African American) 102.4 ml/min; Est GFR (Non-African American) 88.3 ml/min; Magnesium 2.1 mg/dl (1.7-2.4); Phosphorus 2.8 mg/dl (2.5-4.9)
[2023-07-18] MEDS: DOXYCYCLINE HYCLATE 100 MG CAP PO SCH ×2 (07:34→20:33)
[2023-07-18] MEDS: FLUTICASONE PROPIONATE NA SPR 16 GM BTL SCH (07:34)
[2023-07-18] MEDS: FEXOFENADINE HCL 180 MG TAB PO SCH (07:35)
[2023-07-18] MEDS: DONEPEZIL HCL 10 MG TAB PO SCH (07:35)
[2023-07-18] MEDS ORDERED: ENOXAPARIN 1 MG/KG SC SCH (08:00)
[2023-07-18 08:01] LABS: ANTI-Xa, UFH(UnfractionatedHep 0.51 IU/ml (0.3-0.7)
[2023-07-18] MEDS: ENOXAPARIN 80 MG/0.8 ML SYR SQ SCH ×2 (10:14→20:33)
--- NOTE | 2023-07-18 11:34 | Pulmonology Progress Note ---
Date of Service July 18, 2023 Assessment & Plan (1) Acute hypoxemic respiratory failure: (2) Pulmonary embolism: (3) DVT (deep venous thrombosis): Plan CTA chest 07/17/2023 personally reviewed: Motion degraded study Pulmonary emboli in the left lower segmental artery RV: LV 1:1 No significant mediastinal lymphadenopathy 2D echo 07/17/2023: EF 60-65%, trace MR, RVSP 35-45 allergy, RV function normal -- Acute hypoxic respiratory failure Secondary to PE sPESI: 0 Troponin negative, BNP within normal limits No indication for thrombolysis -- Acute DVT Left lower extremity Given the DVT is unprovoked, would recommend lifetime anticoagulation Plan: Okay to transition heparin to DOACs. Would recommend a coagulation lifelong but if there is any risk of bleeding/fall would recommend at least 3-6 months and then close monitoring by Doppler of the lower extremities Case was discussed with primary team as well as RN at bedside No further recommendation from pulmonary perspective, will sign off Please call directly with any questions Please note the above document was generated using voice recognition software. It may contain grammatical, syntax or spelling errors.Any formal questions or concerns about the content, text or information contained within the body of this dictation should be directly addressed to the provider for clarification.21 Admission and Anticipated Discharge Date Admission Date: July 17, 2023 Subjective Patient seen and examined at bedside. No acute distress, no adverse events overnight He was saturating 98% on 2 L nasal cannula. Patient's was also patient was also in the room Denied any chest pain, no shortness of breath No headache. Was asking to go to the washroom Review of Systems 2 Review of Systems: All systems reviewed & are unremarkable except as noted in Subjective and Unobtainable due to mental health condition Physical Exam 2 Physical Exam: Constitutional: No acute distress HEENT: EOMI, PERRLA, hard to hear Respiratory system: Decreased air entry bilaterally, no wheeze, rhonchi, mild crackles bilateral lower lobes CVS: S1-S2 positive, no murmurs or gallops Abdomen: Soft, nontender, nondistended, positive bowel sounds x4 Extremities: +2 pulses bilaterally radialis, no cyanosis, + pitting edema bilateral lower extremity Neuro: Awake alert oriented to self and place Psych: Normal mood and affect Skin: no rashes, warm and dry Lymphatic: no cervical or axillary lymphadenopathy Results & Data Results & Data Vital Signs (Past 12 Hours) Vital Signs Temp Pulse Pulse Resp BP Pulse Ox O2 Del Method 07/18/23 11:28 36.4 C L 79 20 112/68 94 Room Air 07/18/23 10:58 Nasal Cannula 07/18/23 07:55 36.6 C 96 H 18 145/89 H 93 Nasal Cannula 07/18/23 07:30 79 07/18/23 04:36 90 20 125/74 90 Room Air 07/17/23 23:42 Nasal Cannula O2 Flow Rate 07/18/23 11:28 07/18/23 10:58 2 07/18/23 07:55 2 07/18/23 07:30 07/18/23 04:36 07/17/23 23:42 2 Laboratory Results 07/18/23 06:34 07/18/23 06:34 PG Care Time/CCT Total # of Minutes Spent Total Time Spent with Patient: Total time spent is greater than 50% in coordination of care (as documented) at patient's floor/unit and/or counseling patient: Coding Level of Care Code 37117 SUB INP/OBS CARE 2/35MIN Diagnoses Acute hypoxemic respiratory failure J96.01 Pulmonary embolism I26.99 DVT (deep venous thrombosis) I82.409
--- NOTE | 2023-07-18 11:42 | Hospitalist Progress Note ---
Date of Service July 18, 2023 Assessment & Plan (1) Acute hypoxemic respiratory failure: (2) Pulmonary embolism: (3) DVT (deep venous thrombosis): Plan: Patient presented to the ED with shortness of breath. Possible history include dementia, asthma, hyperlipidemia, prediabetes. Bilateral PE Right heart strain DVT of left lower extremity Patient presented with shortness of breath. CTA chest reviewed; bilateral PE in left posterior basal segment and lateral basal segment proximal. Complete opacification of the proximal right lung upper lobe. Evidence of right heart strain. Venous duplex of bilateral lower extremities shows extensive DVT throughout left lower extremity. Echo shows EF of 60 to 65%; borderline right ventricular enlargement. BNP within normal limits. Switched over to Lovenox. Eliquis prescription sent to pharmacy. Patient will need anticoagulation at least for 6 months. As per , patient has been less mobile in recent months which could be precipitating factor. Will need outpatient age-appropriate cancer screening. Follow-up with PCP PT OT ordered Chronic medical conditions; Dementiaas per , patient has increasing signs of dementia with less mobility and less interaction. Underwent physical. He is also on Seroquel for behavioral disorder. Asthmaon albuterol as needed Full code DVT prophylaxis Lovenox. Dispositionpatient lives at home with his and son. PT OT ordered. Po ssible DC in a.m. Time spent evaluating patient, direct bedside care, chart review, placing orders, interpretation of diagnostic studies, discussion with consultants, patient, and family members, as well as other required patient management activities is 50 minutes Please note the above document was generated using voice recognition software. It may contain grammatical, syntax or spelling errors. Any formal questions or concerns about the content, text or information contained within the body of this dictation should be directly addressed to the provider for clarification Admission and Anticipated Discharge Date Admission Date: July 17, 2023 Subjective Patient seen and examined at bedside. Comfortable; not in distress. He is eating breakfast Denies fever, chills, chest pain, shortness of breath, abdominal pain or urinary symptoms. No significant overnight events Review of Systems Review of Systems: All systems reviewed & are unremarkable except as noted in Subjective Physical Exam Physical Exam: Constitutional: Alert, oriented to self. Not in any distress. Respiratory: Bilateral vesicular breath sound. Cardiovascular: RRR, no murmur, no edema Vessels: no JVD or carotid bruit Chest: normal inspection of chest Abdomen: normal bowel sounds, soft, nontender, no hepatosplenomegaly Musculoskeletal: no cyanosis or clubbing, extremities motor strength 5/5 Skin: no rashes, warm and dry normal turgor Neurologic: PERRL, EOMI, accommodation nl, no face palsy, no dysarthria CN's II- XI intact bilaterally and moves all extremities Psychiatric: A+Ox1, euthymic affect Results & Data Results & Data Vital Signs (Past 12 Hours) Vital Signs Temp Pulse Pulse Resp BP Pulse Ox O2 Del Method 07/18/23 11:28 36.4 C L 79 20 112/68 94 Room Air 07/18/23 10:58 Nasal Cannula 07/18/23 07:55 36.6 C 96 H 18 145/89 H 93 Nasal Cannula 07/18/23 07:30 79 07/18/23 04:36 90 20 125/74 90 Room Air 07/17/23 23:42 Nasal Cannula O2 Flow Rate 07/18/23 11:28 07/18/23 10:58 2 07/18/23 07:55 2 07/18/23 07:30 07/18/23 04:36 07/17/23 23:42 2
[2023-07-18] MEDS: QUEtiapine FUMARATE 25 MG TABLET PO SCH (20:33)
[2023-07-19 07:42] LABS: Basophils # (auto) 0.09 K/uL (0.00-0.20); Basophils % (auto) 0.9 %; Eosinophils # (auto) 0.68 K/uL (0.00-0.50); Eosinophils % (auto) 6.8 %; Hematocrit (blood only) 42.4 % (42.0-52.0); Immature Granulocytes # (auto) 0.03 K/uL (0.01-0.20); Immature Granulocytes % (auto) 0.3 %; Lymphocytes # (auto) 2.12 K/uL (1.20-3.40); Lymphocytes % (auto) 21.2 %; Mean Corpuscular Hemoglobin 30.3 pg (25.0-34.0); Mean Corpuscular Volume 91.8 fL (80.0-100.0); Mean Platelet Volume 9.9 fL (9.4-12.4); Monocytes # (auto) 0.99 K/uL (0.11-0.59); Monocytes % (auto) 9.9 %; Neutrophils % (auto) 60.9 %; Platelet Count 231 K/uL (130-400); RDW Coefficient of Variation 13.2 % (11.5-14.5); RDW Standard Deviation 44.3 fL (36.4-46.3); Red Blood Count 4.62 M/uL (4.70-6.10); White Blood Count 10.01 K/ul (4.8-10.8)
[2023-07-19 07:53] LABS: BUN Creatinine Ratio 17.5 (10-20); Calcium 9.3 mg/dl (8.6-10.3); Creatinine Clr Calc Pharmacy 83.5 ml/min; Est GFR (African American) 103.4 ml/min; Est GFR (Non-African American) 89.2 ml/min; Potassium 4.1 mmol/L (3.5-5.1)
[2023-07-19] MEDS ORDERED: APIXABAN 5 MG TABLET PO SCH (09:00)
[2023-07-19] MEDS: DONEPEZIL HCL 10 MG TAB PO SCH (09:19)
[2023-07-19] MEDS: FLUTICASONE PROPIONATE NA SPR 16 GM BTL SCH (09:20)
[2023-07-19] MEDS: FEXOFENADINE HCL 180 MG TAB PO SCH (09:20)
[2023-07-19] MEDS: DOXYCYCLINE HYCLATE 100 MG CAP PO SCH (09:20)
--- NOTE | 2023-07-19 12:59 | Discharge Summary ---
Date of Service July 19, 2023 Admission HPI Per Admitting Provider History obtained from patient, family, and records. Limited history from patient secondary to dementia and hearing impairment. Medical history significant for bronchial asthma, hyperlipidemia, prediabetes, GERD, dementia. Patient noted to have junky cough symptoms productive of yellow sputum over the last few days. Patient sick with respiratory symptoms. No witnessed aspiration. Patient denies chest pain complaints. Not moving a lot and just laying in his recliner as per . Shortness of breath mostly on exertion as per patient. Patient consulted ER along with his . Lowest O2 sats of 80s documented at the ER. 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 Admission Exam Per Admitting Provider GENERAL: Comfortable, demented, pleasant, no respiratory distress SKIN: Normal color, warm HEENT: [place] palpebral conjunctivae, no ptosis, dry buccal mucosa, nasal cannula in place NECK : Supple, no tenderness CHEST : Decreased breath sounds, no tenderness HEART : RRR, no obvious murmurs ABDOMEN: Some distention, nontender EXTREMITIES : Minimal LLE swelling, no LE tenderness, no other conspicuous deformities noted NEUROLOGIC : Demented, no facial asymmetry, no other gross focality Principal Diagnosis Bilateral PE Right heart strain DVT of left lower extremity Discharge Exam Constitutional: Alert, oriented to self. Not in any distress. Respiratory: Bilateral vesicular breath sound. Cardiovascular: RRR, no murmur, no edema Vessels: no JVD or carotid bruit Chest: normal inspection of chest Abdomen: normal bowel sounds, soft, nontender, no hepatosplenomegaly Musculoskeletal: no cyanosis or clubbing, extremities motor strength 5/5 Skin: no rashes, warm and dry normal turgor Neurologic: PERRL, EOMI, accommodation nl, no face palsy, no dysarthria CN's II- XI intact bilaterally and moves all extremities Psychiatric: A+Ox1, euthymic affect Discharge Data Allergies Allergy/AdvReac Type Severity Reaction Status Date / Time pollen extracts Allergy Unknown Verified 07/17/23 08:55 Consultations 07/16/23 20:31 ED Decision to Admit Stat 07/17/23 01:20 Consult Pulmonology Routine Ordered Studies 07/16/23 23:59 CT angio chest PE protocol Stat 07/17/23 01:20 US venous doppler LE BI Routine Hospital Course (1) Acute hypoxemic respiratory failure: (2) Pulmonary embolism: (3) DVT (deep venous thrombosis): Patient presented to the ED with shortness of breath. Possible history include dementia, asthma, hyperlipidemia, prediabetes. Bilateral PE Right heart strain DVT of left lower extremity Patient presented with shortness of breath. CTA chest reviewed; bilateral PE in left posterior basal segment and lateral basal segment proximal. Complete opacification of the proximal right lung upper lobe. Evidence of right heart strain. Venous duplex of bilateral lower extremities shows extensive DVT throughout left lower extremity. Echo shows EF of 60 to 65%; borderline right ventricular enlargement. BNP within normal limits. During the hospitalization, patient was started on heparin drip and switch over to Lovenox. Pulmonology was consulted; recommended to be started on DOAC's. Patient was discharged on Eliquis. As per , patient has been less mobile in recent months which could be precipitating factor. Will need outpatient age-appropriate cancer screening. He will likely need anticoagulation lifelong. Needs hematology referral for follow-up with PCP. Two-step oxygen evaluation was done; patient needs 2 L at rest and ambulation. Please note the above document was generated using voice recognition software. It may contain grammatical, syntax or spelling errors. Any formal questions or concerns about the content, text or information contained within the body of this dictation should be directly addressed to the provider for clarification Total Time Total Time Spent Total Time Spent (In Minutes): 35 Total Time Includes: Examination of the Patient, Discharge Planning, Medication Reconciliation, Communication With Other Providers and Other Discharge Plan Discharge Items Patient Disposition: Home - Self-Care Reason For Visit: RESP FAILURE Discharge Diagnosis: Bilateral PE Right heart strain DVT of left lower extremity Activity: Resume your previous activity Non-emergency contact: Primary Care Provider Call non-emergency contact if: you have any medication questions and your symptoms worsen Follow-up/Referrals: Van Mccormick DO [Primary Care Provider] - Diet: Regular Addtl Attending Provider Instructions: You were admitted to the hospital due to blood clot in your lungs. You are also found to have blood clots in your left leg. Your evaluated by airborne and air delivery specialist during the hospitalization. You will need to be on blood thinners for at least 6-month; possibly lifelong. You are also found to have mild pneumonia in in the upper part of her lungs. You are prescribed Eliquis(blood thinner) 5 mg. Please take it as follows: 1) Eliquis 10 mg(2 tablets) twice a day for 7 days(till July 25, 2023), then 2) Eliquis 5 mg (1 tablet) twice a day then after. You were also prescribed doxycycline 100 mg twice a day for 5 more days to complete treatment for possible pneumonia. Please follow-up with your primary care doctor sometime next week. You need age-appropriate cancer screening. Please obtain referral with director of corporate marketing from your primary care doctor to determine duration of blood thinners. Pending Studies at Discharge: No Stand-Alone Forms: My [facility] Conferensum, Smoking Cessation Medications and DC Order Prescriptions: New doxycycline hyclate 100 mg Capsule 100 mg PO BID 5 Days Qty: 10 0RF Eliquis 5 mg tablet 5 mg PO BID Qty: 60 0RF Continued ATORVASTATIN (LIPITOR) 10 MG tablet 10 mg PO DAILY Qty: 0 Acetaminophen (Tylenol) 500 MG tablet 1,000 mg PO prn ud Qty: 0 Ranitidine (Zantac) 150 MG tablet 150 mg PO BID PRN (Reason: heartburn) Qty: 0 Sildenafil Citrate (Viagra) 25 MG tablet 25 - 50 mg PO PRN PRN (Reason: intercourse) Qty: 0 Patient Comments: up to 50mg PO daily Albuterol Sulfate (Proair Respiclick) 108 MCG/ACT AER 2 puff Inhalation QID PRN (Reason: SOB/Wheezing) Qty: 0 Guaifenesin/Codeine (Robitussin-Ac Syrup) syrup 10 ml PO Q6 PRN (Reason: Cough) 4 Days Qty: 240 donepezil 10 mg tablet 10 mg PO DAILY Rx Instructions: TAKE THIS MED WITH THE LARGEST MEAL OF THE DAY. quetiapine 25 mg tablet 25 mg PO HS fexofenadine 180 mg Tablet 180 mg PO QAM zinc 50 mg Capsule 50 mg PO QAM melatonin 5 mg Tablet,Disintegrating 5 mg PO HS PRN (Reason: Insomnia) ascorbic acid (vitamin C) 500 mg Tablet 500 mg PO QAM guaifenesin 200 mg Tablet 200 mg PO QAM cholecalciferol (vitamin D3) 50 mcg (2,000 unit) Capsule 50 mcg PO QAM fluticasone propionate 50 mcg/actuation [place],Suspension 2 spray INTRANASAL DAILY Rx Instructions: administer into each nostril cannabidiol 100 mg/mL Solution 30 mg PO BID Rx Instructions: TAKE 0.3ML AM AND 0.3ML PM magnesium 250 mg Tablet 250 mg PO QAM Discharge Orders: Discharge Order (Routine); Ordered 07/19/23 Ordered By: Kendall Alston Admission Data Admit Date/Time: 07/17/23 00:02 Attending Provider: Kendall Alston Admit Provider: Yasir Mohamud Primary Care Provider: Van Mccormick Other Providers: Yasir Mohamud; Kailee Armas; [facility] Other Interventions: Discharge Summary Assessment (RN) Last Done: 07/19/23 12:20
== END 2023-07-19 14:13 | disposition home or self-care (01) | DRG 175 ==
LOC: ED 16:30 → EDBD 16:30 → SUATTDRO 07-17 00:02 → EDINP 07-17 00:02 → MERGE 07-17 00:02 → 2N 07-17 00:58